=== PATIENT | female | born 1985 | race Caucasian/White ===

== ENCOUNTER 2020-08-01 02:48 | Outpatient (CLI) | payer BC, SELFPAY ==
[2020-08-01 18:16] LABS: SARS-CoV-2 RNA PCR Negative
== END 2020-08-01 02:49 | disposition home or self-care (01) ==
PROVIDERS: PCP Family Medicine; Visit Provider Student in an Organized Health Care Education/Training Program
DX: Z01.812 Encounter for preprocedural laboratory examination (principal); Z20.828 Contact with and (suspected) exposure to other viral communicable diseases
CPT/HCPCS: 87635; C9803; U0003

== ENCOUNTER 2020-08-01 09:38 | Outpatient (CLI) | payer BC, MEDICAID, SELFPAY ==
[2020-08-01 10:29] LABS: Hematocrit 40.4 % (37.0-47.0); Hemoglobin 13.7 g/dL (12.0-15.0); Mean Corpuscular HGB Conc 33.9 g/dl (32-36); Mean Corpuscular Hemoglobin 31.4 pg (26-34); Mean Corpuscular Volume 92.4 fl (80-100); Mean Platelet Volume 8.8 fl (7.4-10.4); Platelet Count Result 297 k/mm3 (150-375); Red Blood Count 4.37 M/mm3 (4.2-5.4); Red Cell Distribution Width 11.5 % (11.5-14.5); White Blood Count 10.6 K/mm3 (4.5-10.0)
== END 2020-08-01 09:39 | disposition home or self-care (01) ==
LOC: ANHSURGERY 09:43
PROVIDERS: PCP Family Medicine; Visit Provider Student in an Organized Health Care Education/Training Program
DX: Z30.2 Encounter for sterilization (principal)
CPT/HCPCS: 36415; 85027; 86850; 86900; 86901

== ENCOUNTER 2020-08-03 00:13 | Day surgery (SDC) | payer BC, SELFPAY ==
[2020-07-18 14:36] VITALS: BMI 24.1
--- NOTE | 2020-08-02 14:34 | P.PNAN_ITS ---
Anes - Initial Pre Proc Eval Procedure: Operation Date: 08/03/20 12:00 Proposed Procedures p Laparoscopic Bilateral Salpingectomy - González Mandujano MD Date/Time: 08/02/20 14:34 Surgeon: González Mandujano MD Pre Op Diagnosis: Desires Sterilization, Patient Data Age: 35 Gender: F Height: 1.65 m Weight: 65.77 kg Allergies Allergy/AdvReac Type Severity Reaction Status Date / Time No Known Allergies Allergy Verified 07/18/20 14:37 Home Medications Medication Instructions Recorded Confirmed Type bupropion HCl 300 mg PO DAILY 07/18/20 07/18/20 History drospirenone-ethinyl estradiol 1 tablet PO DAILY 07/18/20 07/18/20 History [Rocío] omeprazole 40 mg PO DAILY 07/18/20 07/18/20 History Patient hx anesthesia problems: none Family hx anesthesia problems: none [facility] Past Medical History Medical History (Updated 08/03/20 @ 08:07 by González Mandujano MD) Anxiety Depression GERD (gastroesophageal reflux disease) Surgical History Surgical History (Updated 08/02/20 @ 14:34 by Jus Sanchez DO) History of tonsillectomy Social History Social History Smoking packs per day: 0.5 Smoking cigarettes per day: 10.0 Years smoked: 20 Smoking pack-years: 10.00 Smoking status: Current every day smoker Tobacco type: cigarettes Alcohol intake: current Drinks per week: 2 Spiritual care concerns: No Anes - Eval Final PreProcedure Day of Procedure 08/02/20 14:34 Patient weight: normal Heart: regular rate and rhythm Lungs: clear to auscultation and normal air movement Airway: Mallampati scale class II Neurological: alert and oriented Last oral intake: >/= 8 hours ASA classification: II Emergent: no Anesthetic plan: proceed Anesthesia type and monitoring: general ETT and standard monitoring Informed Consent: The patient's anesthetic plan and its attendant risks and benefits were discussed with the patient/family/POA. Questions were solicited and answers provided to the satisfaction of the patient/family/POA.
[2020-08-03] VITALS (9 sets, daily range): BP systolic 87–122; BP diastolic 41–74; PULSE 76–102; RESP 11–20; TEMP 37.2–37.6; O2SAT 97–100
--- NOTE | 2020-08-03 08:06 | PM.IMHP ---
H&P: HPI History of Present Illness Date/Time: 08/03/20 08:06 Chief complaint: Desires Sterilization, Narrative: Amara Chery is a 35 year old female who presents for laparoscopic bilateral salpingectomy for elective sterilization. Patient has 4 living children and desires permanent sterilization. Patient was not interested in any other form of contraception. Review of Systems Cardiovascular: Cardiovascular: Denies chest pain, Denies leg edema, Denies palpitations, Denies dyspnea and Denies dyspnea on exertion Respiratory: Respiratory: Denies cough, Denies dyspnea and Denies dyspnea on exertion Gastrointestinal: Gastrointestinal: Denies abdominal pain, Denies constipation, Denies diarrhea, Denies nausea and Denies vomiting Genitourinary: Genitourinary: Denies hematuria, Denies urinary frequency, Denies dysuria, Denies pelvic pain, Denies urinary incontinence and Denies vaginal discharge Neurologic: Reports system reviewed and no additional complaints, except as documented Psychiatric: Psychiatric: Reports no additional psychiatric complaints Endocrine: Endocrine: Denies palpitations PMFSH Past Medical History Medical History (Updated 08/03/20 @ 08:07 by González Mandujano MD) Anxiety Depression GERD (gastroesophageal reflux disease) Surgical History Surgical History (Updated 08/02/20 @ 14:34 by Jus Sanchez DO) History of tonsillectomy Social History Social History Smoking packs per day: 0.5 Smoking cigarettes per day: 10.0 Years smoked: 20 Smoking pack-years: 10.00 Smoking status: Current every day smoker Tobacco type: cigarettes Alcohol intake: current Drinks per week: 2 Spiritual care concerns: No Meds Home Medications and Allergies Home Medications Medication Instructions Recorded Confirmed Type bupropion HCl 300 mg PO DAILY 07/18/20 07/18/20 History drospirenone-ethinyl estradiol 1 tablet PO DAILY 07/18/20 07/18/20 History [Rocío] omeprazole 40 mg PO DAILY 07/18/20 07/18/20 History Allergies Allergy/AdvReac Type Severity Reaction Status Date / Time No Known Allergies Allergy Verified 07/18/20 14:37 Exam Const: General: no acute distress Eyes: EOM: EOMs intact bilaterally Neck: Neck: supple Thyroid: thyroid normal Chest: Breast/axilla inspection: normal inspection of the breasts Breast/axilla palpation: normal palpation of the breasts, normal palpation of the axillae and no axillary lymphadenopathy Resp: Effort & Inspection: normal respiratory effort Auscultation: clear to auscultation bilaterally Cardio: Rate: regular rate Rhythm: regular rhythm GI: Inspection: non-distended GI Palp: Yes Soft to palpation, No Tenderness to palpation present (GI) and No Guarding due to palpation present (GI) Auscultation: normal bowel sounds : General: No bladder normal to palpation External Female Exam: normal external appearance Speculum Exam - Vagina: normal vaginal discharge and No vaginal bleeding Speculum Exam - Cervix: nontender Bimanual exam- vagina & uterus: No bladder normal to palpation and No Cervical tenderness present OB/external & speculum: No vaginal bleeding Skin: General skin exam: normal color and no rashes or lesions noted Neuro: Cognition (Neuro): normal cognition Speech: normal speech Extrem: General: normal to inspection and no edema Psych: Mental Status: mental status grossly normal Affect: normal affect Assessment and Plan Assessment and plan (1) Encounter for sterilization: Code(s): Z30.2 - Encounter for sterilization Status: Acute Assessment and Plan: 35 yo who requests permanent sterilization risks, benefits, and alternatives to permanent sterilization were discussed with patient. pt declined alternative forms of contraceptions will proceed with laparoscopic bilateral salpingectomy for permanent sterilization
[2020-08-03] MEDS: ACETAMINOPHEN 500 MG TABLET 1000 MG PO (10:56)
[2020-08-03] MEDS: KETOROLAC 15 MG/ML VIAL (*BKC) IV PUSH (10:58)
[2020-08-03] MEDS: LACTATED RINGERS 1,000 ML 30 ML IV CONT ×2 (11:04→12:25)
--- NOTE | 2020-08-03 11:35 | WPDHPUPDATE1 ---
History and Physical Update Update Date/Time: 08/03/20 11:35 History and Physical has been reviewed, including an updated exam of the patient. There are NO changes in the patient's condition. Risks, benefits, and alternatives have been discussed and questions answered. Patient agrees to proceed with procedure.
[2020-08-03] MEDS: LIDO 1%/EPINEPHRINE 1:100,000 20 ML VIAL INFILTRATE (12:16)
--- NOTE | 2020-08-03 12:24 | PM.PROC ---
Procedure Note - Detailed Date of procedure: 08/03/20 Pre-op diagnosis: Desires Sterilization, Post-op diagnosis: same Procedure performed: laparoscopic bilateral salpingectomy Description of procedure: After the patient was appropriately consented she was taken to the operating room where she was transferred to the table in a dorsal supine position. General anesthesia was then induced with endotracheal intubation. The patient was transferred to a dorsal lithotomy position using adjustable Yellow fin stirrups. The patient was prepped and draped. A transurethral da silva catheter was placed. A sterile speculum was placed to better visualized the cervix. The anterior lip of the cervix was grasped with single-tooth tenaculum. An acorn uterine manipulator was placed. Gloves were changed and attention was turned to the abdomen. Lidocaine was injected subumbilically and a 1cm incision made here. A 5 mm optical trocar was then placed with direct camera visualization of the abdominal layers during placement. The trocar stylet was removed and the camera was used to verify intra-abdominal placement. CO2 insufflation was then connected and the abdomen was then insufflated with approximately 2-3L of CO2 establishing a pneumoperitoneum. The patient was placed in Trendelenburg position. We subsequently placed two laparoscopic 5mm trocars 10cm lateral to the umbilicus at a 30 degree caudal angle towards the ipsilateral ASIS. We evaluated the pelvis with no abnormal findings. The Left fallopian tube was then grasped at the fimbriae and divided from the ipsilateral ovary and uterus via the Ligasure device. Hemostasis was identified. The entire fallopian tube was removed from the abdomen through the 5mm laparoscopic port under direct visualization. The above procedure was repeated on the Right fallopian tube. Hemostasis was reidentified and we proceeded with closure. All port-site skin incisions were reapproximated with 4-0 Vicryl in a subcuticular fashion. Dermabond was placed.The acorn manipulator was removed from the cervix. The cervix was notet to be bleeding from the tenaculum site. Hemostasis was achieved with silver nitrate sticks. The patient tolerated the procedure well. There were no antibiotics given for antimicrobial prophylaxis. Sponge, needle and instrument counts were correct x 2 and the patient was taken to recovery in stable condition. Anesthesia: GETA Surgeon: González Mandujano MD Estimated blood loss (mL): 10 Drains: No Packing: No Pathology: yes (bilateral fallopian tubes) Complications: No immediate complications Condition: stable Disposition: PACU
[2020-08-03] MEDS: fentaNYL CITRATE INJ (*CRX) 100 MCG/2 ML VIAL 25 MCG IV PUSH ×4 (12:45→13:12)
[2020-08-03] MEDS: oxyCODONE HCL (*CRX) 5 MG TAB IR PO (13:53)
--- NOTE | 2020-08-03 14:44 | SUR.PHASEI ---
Patient is getting dressed and just waiting for her ride to arrive. Vitals stable.
== END 2020-08-03 15:14 | disposition home or self-care (01) ==
PROVIDERS: PCP Family Medicine; Visit Provider Student in an Organized Health Care Education/Training Program
PROC: (CPT 49320; principal; 2020-08-03 12:00)
DX: Z30.2 Encounter for sterilization (principal); N83.8 Other noninflammatory disorders of ovary, fallopian tube and broad ligament; K21.9 Gastro-esophageal reflux disease without esophagitis; F41.8 Other specified anxiety disorders; F17.210 Nicotine dependence, cigarettes, uncomplicated
CPT/HCPCS: 58661; 88302; A9270; J0330; J1100; J1885; J2250; J2405; J2704; J3010; J7030; J7120

== ENCOUNTER 2023-05-21 17:00 | Outpatient (CLI) | payer OTHER, SELFPAY ==
--- NOTE | ~2023-05-21 | CT_ITS ---
EXAMINATION: CT abdomen wo con DATE: 05/21/2023 17:41 INDICATION: Epigastric pain TECHNIQUE: Computed tomography (CT) of the abdomen including the pelvis was performed without intrave nous contrast. Automated exposure control and iterative reconstruction technique were employed. The d ose-length product was 280.32 mGy-cm. COMPARISON: None FINDINGS: Lung bases are clear. Heart size is normal. No pericardial or pleural effusion. Hepatomegaly with dif fuse hepatic steatosis. Gallbladder, spleen and left adrenal gland is normal. Left-sided retroperiton eal stranding along the posterior margin of the body and tail of the pancreas, abutting the tail of t he pancreas and extending caudally along the left anterior pararenal space. Bilateral nonobstructing nephrolithiasis with 2 mm stone in an upper pole calyx of the left kidney and a couple 1-2 mm stones at lower pole calyx of the left kidney. No stones seen along the course of ureters. No hydronephrosis or perinephric stranding to the left or right. Bowels including the appendix are normal. Bladder, ut erus and bilateral adnexa are unremarkable. Small amount of likely physiologic free fluid in the pelv is. No abscess or free intraperitoneal gas. Tiny fat-containing umbilical hernia. No pathologically e nlarged abdominal or pelvic lymphadenopathy. Mild lumbosacral spondylosis. IMPRESSION: 1. Retroperitoneal stranding the left upper quadrant abutting the body and tail the pancreas and left adrenal gland. This could be due to acute interstitial pancreatitis or potentially adrenal hemorrhag e although the attenuation appears relatively low and would favor the former. Correlate with lipase l evels. 2. Bilateral nonobstructing nephrolithiasis. 3. Hepatomegaly with diffuse hepatic steatosis. Reviewed, dictated and finalized at location A. IMPRESSION: 1. Retroperitoneal stranding the left upper quadrant abutting the body and tail the pancreas and left adrenal gland. This could be due to acute interstitial p ancreatitis or potentially adrenal hemorrhage although the attenuation appears relatively low and would favor the former. Correlate with lipase levels. 2. Bilateral nonobstructing nephrolithiasis. 3. Hepatomegaly with diffuse hepatic steatosis.
[2023-05-21 17:25] LABS: Basophils Absolute Auto 0.04 K/mm3 (0.00-0.10); Basophils Percent Auto 0.3 % (0.0-1.0); Eosinophils Absolute Auto 0.12 K/mm3 (0.02-0.50); Eosinophils Percent Auto 0.8 % (1.0-6.0); Hematocrit 37.5 % (35.0-49.0); Hemoglobin 13.5 g/dL (12.0-15.0); Immature Granulocyte Absolute 0.06 K/mm3 (0.00-0.00); Immature Granulocyte Percent A 0.4 % (0.0-0.0); Lymphocytes Absolute Auto 1.69 K/mm3 (1.10-4.50); Lymphocytes Percent Auto 11.8 % (18.0-42.0); Mean Corpuscular Hemoglobin 33.8 pg (27.0-31.0); Mean Platelet Volume 7.8 fl (9.2-11.8); Monocytes Absolute Auto 1.02 K/mm3 (0.10-0.90); Monocytes Percent Auto 7.1 % (2.0-11.0); Neutrophils Absolute Auto 11.4 K/mm3 (1.7-7.2); Neutrophils Percent Auto 79.6 % (50.0-70.0); Platelet Count Result 169 K/mm3 (150-420); Red Blood Count 3.99 M/mm3 (4.20-5.40); Red Cell Distribution Width 12.5 % (11.6-14.4); White Blood Count 14.3 K/mm3 (4.8-10.8)
[2023-05-21 17:37] LABS: Alanine Aminotransferase 25 U/L (14-59); Albumin Level 3.5 g/dL (3.4-5.0); Alkaline Phosphatase 75 U/L (46-116); Amylase 77 U/L (25-115); Anion Gap 3 mmol/L (8-16); Aspartate Amino Transferase 23 U/L (15-37); Bilirubin,Total 1.3 mg/dL (0.00-1.00); Blood Urea Nitrogen 10 mg/dL (7-18); Calcium 8.1 mg/dL (8.5-10.1); Carbon Dioxide 25 mmol/L (21-32); Chloride 96 mmol/L (98-108); Estimated Glomerular Filt Rate > 60; Glucose 142 mg/dL (70-99); Lipase 199 U/L (16-77); Osmolality Calculated 259 mOsm/kg (285-295); Potassium 2.7 mmol/L (3.5-5.1); Sodium 124 mmol/L (136-145); Total Protein 7.6 g/dL (6.4-8.2)
== END 2023-05-21 17:01 | disposition home or self-care (01) ==
LOC: CHSLAB 17:07
PROVIDERS: PCP Family Medicine; Visit Provider Nurse Practitioner Family
DX: R10.13 Epigastric pain (principal); R10.12 Left upper quadrant pain; N20.0 Calculus of kidney; R16.0 Hepatomegaly, not elsewhere classified; K76.0 Fatty (change of) liver, not elsewhere classified
CPT/HCPCS: 36415; 74150; 80053; 82150; 83690; 85025

== ENCOUNTER 2023-07-08 13:15 | Outpatient (CLI) | payer OTHER, SELFPAY ==
[2023-07-08 14:05] LABS: Alanine Aminotransferase 21 U/L (14-59); Albumin Level 2.5 g/dL (3.4-5.0); Alkaline Phosphatase 105 U/L (46-116); Anion Gap 9 mmol/L (8-16); Aspartate Amino Transferase 19 U/L (15-37); Bilirubin,Total 0.6 mg/dL (0.00-1.00); Blood Urea Nitrogen 8 mg/dL (7-18); Calcium 9.1 mg/dL (8.5-10.1); Carbon Dioxide 31 mmol/L (21-32); Chloride 98 mmol/L (98-108); Estimated Glomerular Filt Rate > 60; Glucose 107 mg/dL (70-99); Magnesium 1.7 mg/dL (1.8-2.4); Osmolality Calculated 284 mOsm/kg (285-295); Potassium 3.4 mmol/L (3.5-5.1); Sodium 138 mmol/L (136-145); Total Protein 6.4 g/dL (6.4-8.2)
[2023-07-08 14:13] LABS: Lipase 655 U/L (16-77)
== END 2023-07-08 13:16 | disposition home or self-care (01) ==
LOC: CHSLAB 13:22
PROVIDERS: PCP Family Medicine
DX: K85.90 Acute pancreatitis without necrosis or infection, unspecified (principal)
CPT/HCPCS: 36415; 80053; 83690; 83735

== ENCOUNTER 2023-12-15 04:35 | Emergency (ER) | payer MEDICAID, SELFPAY ==
[2023-12-15] VITALS (13 sets, daily range): BP systolic 129–147; BP diastolic 75–91; PULSE 95–116; RESP 20; TEMP 35.9; O2SAT 93–99
--- NOTE | ~2023-12-15 | CT_ITS ---
CT of the Abdomen and Pelvis: Indication: Abdominal pain Technique: 2.5 mm axial scans were obtained through the abdomen and pelvis following intravenous adm inistration of 100 cc of Omnipaque 350. Dose reduction technique was used on this scan by utilizing a utomated exposure control and iterative reconstruction technique. The dose-length product (DLP) was 2 32.14 mGy-cm. COMPARISON: 05/21/2023 Findings: Scans through the lung bases are unremarkable. The liver, spleen, gallbladder, adrenals and kidneys are within normal limits. There is mild peripanc reatic inflammatory change present at the pancreatic head, with small amount of fluid extending throu gh the retroperitoneum. No pseudocyst or necrotic change of the pancreas evident. No evidence of aort ic aneurysm. No lymphadenopathy. No bowel obstruction or bowel wall thickening. There is no evidence to suggest acute appendicitis. Images through the pelvis were performed. Urinary bladder unremarkable. No pelvic mass seen. No pelvi c ascites. Impression: Acute pancreatitis, as detailed above. Reviewed, dictated and finalized at location . RAL SURVEYING TECHNICIAN Impression: Acute pancreatitis, as detailed above.
--- NOTE | ~2023-12-15 | XR_ITS ---
Portable chest x-ray Comparison: None Clinical History: Pain Findings: Lungs are clear, without focal consolidation or pleural effusion. Cardiomediastinal silho uette is unremarkable. Bones and soft tissues are unremarkable. Impression: Normal chest. Reviewed, dictated and finalized at location . ULAR OPERATOR Impression: Normal chest.
--- NOTE | 2023-12-15 04:49 | ECG_ITS ---
Measurements Intervals [place] Rate: 80 P: 69 [place]: 142 QRS: 48 QRSD: 89 T: 74 QT: 384 QTc: 443 Interpretive Statements SINUS RHYTHM BASELINE ARTIFACT RSR' V1 AND V2, PROBABLE NORMAL VARIANT NO PREVIOUS ECG AVAILABLE FOR COMPARISON Electronically Signed On 12-15-2023 18:17:48 REGULATORY CONSULTANT by Peter Menard M.D.
--- NOTE | 2023-12-15 04:51 | ED.GENADULT ---
HPI - General Adult General Chief complaint: Abdominal Pain Stated complaint: abdominal pain Time Seen by Provider: 12/15/23 04:42 History of Present Illness HPI narrative: This is a 38-year-old female with history of alcoholic pancreatitis presenting with abdominal pain. Patient says the pain started yesterday morning when she woke. It is a stabbing pain in the epigastric area that radiates to her back. Eight out 10 intensity and constant. Her last bout of pancreatitis was approximately 2 months ago. She says is due to alcohol. Patient's last drink was 2 days ago. Patient says she still drinks a pt of alcohol twice a week. Patient has had nausea vomiting. Denies fevers chills chest pain difficulty breathing or urinary symptoms. Last period was 2 weeks ago. Related Data Home Medications Medication Instructions Recorded Confirmed bupropion HCl 300 mg 24 hr tablet, 300 mg PO DAILY 07/18/20 12/15/23 extended release omeprazole 40 mg capsule,delayed 40 mg PO DAILY 07/18/20 12/15/23 release clonazepam 0.5 mg tablet 0.5 mg PO QHS PRN Anxiety 12/04/21 12/15/23 fluoxetine 20 mg capsule 20 mg PO DAILY 12/04/21 12/15/23 magnesium oxide 400 mg (241.3 mg 400 mg PO HS 12/15/23 12/15/23 magnesium) tablet Allergies Allergy/AdvReac Type Severity Reaction Status Date / Time No Known Allergies Allergy Verified 12/15/23 04:40 [facility] Past Medical History Medical History Anxiety Depression GERD (gastroesophageal reflux disease) Surgical History Surgical History History of tonsillectomy Social History Social History Smoking packs per day: 0.5 Smoking cigarettes per day: 10.0 Years smoked: 20 Smoking pack-years: 10.00 Smoking status: Current every day smoker Tobacco type: cigarettes Alcohol intake: current Drinks per week: 2 Spiritual care concerns: No Exam Narrative: APPEARANCE: Patient appears uncomfortable Head: atraumatic. EYES: EOMI, NOSE: Atraumatic NECK: Trachea midline RESPIRATORY: tachypneic, clear lung sounds CARDIOVASCULAR: tachycardic, no peripheral edema ABDOMINAL: tenderness palpation the epigastric area with voluntary guarding. The rest the abdomen is soft nontender. MUSCULOSKELETAl: No obvious deformities NEURO: Alert. Moving 4/4 extremities SKIN:: Warm, dry. Normal color PSYCHIATRIC: Normal affect Course Vital Signs Vital signs: Vital Signs Temperature 96.6 F L 12/15/23 04:39 Pulse Rate 116 H 12/15/23 04:39 Respiratory Rate 20 12/15/23 04:39 Blood Pressure 147/75 H 12/15/23 04:39 Pulse Oximetry 97 12/15/23 04:39 Oxygen Delivery Room Air 12/15/23 04:39 Temperature 96.6 F L 12/15/23 04:39 Pulse Rate 95 12/15/23 06:28 Respiratory Rate 20 12/15/23 04:39 Blood Pressure 139/91 H 12/15/23 06:01 Pulse Oximetry 94 12/15/23 06:15 Oxygen Delivery Room Air 12/15/23 04:39 Medical Decision Making [facility] Narrative Medical decision making narrative: -Course:38-year-old female presenting with abdominal pain. Lipase was normal, but CT showed evidence of pancreatitis. Known etiology of alcohol use. Patient given pain control with some improvement of her symptoms. Original plan was to admit the patient for IV fluids and pain medication. However the patient has missed this significant amount of work lately and does not want to be admitted to hospital. We will attempt a trial of outpatient management with antiemetics and pain control. Before discharge the patient was tolerating p.o. and had stable vital signs. Patient was encouraged to return if she could not control her pain/nausea. high likelihood of bouncing back needing admission. -DDX includes but is not limited to: Pancreatitis, gastritis gallbladder disease -Co-morbidities complicating care: history of alcoh
[2023-12-15 04:52] LABS: Basophils Absolute Auto 0.04 K/mm3 (0.00-0.10); Basophils Percent Auto 0.4 % (0.0-1.0); Eosinophils Absolute Auto 0.09 K/mm3 (0.02-0.50); Hematocrit 36.1 % (35.0-49.0); Hemoglobin 13.2 g/dL (12.0-15.0); Immature Granulocyte Absolute 0.04 K/mm3 (0.00-0.00); Immature Granulocyte Percent A 0.4 % (0.0-0.0); Lymphocytes Absolute Auto 1.53 K/mm3 (1.10-4.50); Lymphocytes Percent Auto 16.4 % (18.0-42.0); Mean Corpuscular HGB Conc 36.6 g/dL (32.0-36.0); Mean Corpuscular Hemoglobin 32.4 pg (27.0-31.0); Mean Corpuscular Volume 88.5 fL (78.0-102.0); Monocytes Absolute Auto 0.88 K/mm3 (0.10-0.90); Monocytes Percent Auto 9.4 % (2.0-11.0); Neutrophils Absolute Auto 6.8 K/mm3 (1.7-7.2); Neutrophils Percent Auto 72.4 % (50.0-70.0); Platelet Count Result 178 K/mm3 (150-420); Red Blood Count 4.08 M/mm3 (4.20-5.40); Red Cell Distribution Width 11.7 % (11.6-14.4); White Blood Count 9.3 K/mm3 (4.8-10.8)
[2023-12-15 05:01] LABS: Glucose Point of Care 105 mg/dl (65-105)
[2023-12-15 05:08] LABS: Alanine Aminotransferase 21 U/L (14-59); Albumin Level 3.4 g/dL (3.4-5.0); Alkaline Phosphatase 69 U/L (46-116); Anion Gap 20 mmol/L (8-16); Aspartate Amino Transferase 22 U/L (15-37); Bilirubin,Total 0.9 mg/dL (0.00-1.00); Blood Urea Nitrogen 12 mg/dL (7-18); Calcium 8.2 mg/dL (8.5-10.1); Carbon Dioxide 18 mmol/L (21-32); Chloride 95 mmol/L (98-108); Estimated CRCL calculation 64 ml/min; Estimated Glomerular Filt Rate > 60; Ethanol < 3 mg/dL (0-6); Glucose 132 mg/dL (70-99); Lipase 95 U/L (16-77); Osmolality Calculated 277 mOsm/kg (285-295); Potassium 3.9 mmol/L (3.5-5.1); Sodium 133 mmol/L (136-145); Total Protein 7.3 g/dL (6.4-8.2)
[2023-12-15] MEDS: HYDROmorphone HCL INJ (*CRX) 2 MG/ML VIAL 1 MG IV PUSH ×3 (05:09→06:23)
[2023-12-15 05:10] LABS: Lactic Acid Reflex 0.6 mmol/L (0.4-2.0)
[2023-12-15] MEDS: FAMOTIDINE 20 MG/2 ML VIAL IV PUSH (05:10)
[2023-12-15] MEDS: ONDANSETRON INJ 4 MG/2 ML VIAL IV PUSH (05:10)
[2023-12-15] MEDS: SODIUM CHLORIDE 0.9% IV 2,000 ML 999 ML IV CONT (05:11)
[2023-12-15 05:25] LABS: Bilirubin Urine Negative (Negative); Blood Urine Trace-Intact (Negative); Color Urine Yellow (Yellow); Glucose Urine UA Negative (Negative); Ketones Urine Negative (Negative); Leukocyte Esterase Ur Trace LEU/UL (Negative); Nitrate Urine Negative (Negative); Protein Urine Negative (Negative); Specific Grav Ur >= 1.030 (1.010-1.020); Urobilinogen Urine 0.2 mg/dL (0.2-1.0)
[2023-12-15 05:31] LABS: Amphetamine Screen Urine Negative (Negative); Barbiturate Screen Urine Negative (Negative); Benzodiazepines Screen Urine Negative (Negative); Cannabinoid Screen Urine Positive (Negative); Cocaine Screen Urine Negative (Negative); Methadone Screen Urine Negative (Negative); Opiate Screen Urine Negative (Negative); Phencyclidine Screen Urine Negative (Negative)
[2023-12-15 05:40] LABS: Add Urine Microscopic? YES; Appearance Urine Cloudy (Clear); RBC Urine 0-2 /hpf (0-2); Squamous Epithelial Cell Urine Many /hpf (Few); WBC Urine None seen /hpf (0-3)
[2023-12-15 05:41] LABS: Bacteria Urine 1+ /hpf; Mucus Urine Few /lpf
[2023-12-15] MEDS: KETOROLAC 15 MG/ML VIAL (*BKC) IV PUSH (05:55)
[2023-12-15] MEDS: ACETAMINOPHEN 500 MG TABLET 1000 MG PO (05:56)
== END 2023-12-15 07:17 | disposition home or self-care (01) ==
PROVIDERS: Emergency Provider Emergency Medicine
DX: K85.90 Acute pancreatitis without necrosis or infection, unspecified (principal); F17.210 Nicotine dependence, cigarettes, uncomplicated; Z79.899 Other long term (current) drug therapy
CPT/HCPCS: 36415; 71045; 74177; 80053; 80307; 81001; 82948; 83605; 83690; 85025; 93005; 96361; 96374; 96375; 96376; 99284; J1170; J1885; J2405; J7030; Q9967

== ENCOUNTER 2024-02-05 11:47 | Emergency (ER) | payer SELFPAY ==
[2024-02-05] VITALS (17 sets, daily range): BP systolic 124–144; BP diastolic 74–95; PULSE 67–120; RESP 16–26; TEMP 36.4–37.1; O2SAT 94–99
--- NOTE | ~2024-02-05 | CT_ITS ---
EXAMINATION: CT abdomen pelvis w con DATE: 02/05/2024 13:42 INDICATION: Abdominal pain. TECHNIQUE: Computed tomography (CT) of the abdomen and pelvis was performed with 100 mL Omnipaque 350 intravenous contrast. Automated exposure control and iterative reconstruction technique were employe d. The dose-length product was 255.81 mGy-cm. COMPARISON: CT abdomen and pelvis 12/15/2023 FINDINGS: The visualized portions of the lung bases are clear without pneumonia or pleural effusion. The heart size is normal. No pericardial effusion. There is diffuse hepatic steatosis. The spleen, ga llbladder, pancreas, adrenal glands, and kidneys are normal. There are no dilated loops of bowel. The appendix is normal. There are no pathologically enlarged lymph nodes. There is no free intraperitone al fluid. There is moderate lower lumbar spondylosis. IMPRESSION: 1. Diffuse hepatic steatosis. Reviewed, dictated and finalized at location A.
--- NOTE | 2024-02-05 11:52 | ECG_ITS ---
SEE SCANNED COPY FOR CONFIRMED REPORT MTDD
[2024-02-05] MEDS: MORPHINE SULFATE (*CRX) 4 MG/ML INJ IV PUSH (12:03)
[2024-02-05] MEDS: ONDANSETRON INJ 4 MG/2 ML VIAL IV PUSH (12:03)
[2024-02-05] MEDS: SODIUM CHLORIDE 0.9% IV 1,000 ML 999 ML IV CONT (12:03)
[2024-02-05 12:21] LABS: INR 1.1; Partial Thromboplastin Time 24.6 Sec (23.9-30.70); Prothrombin Time 12.4 Seconds (9.50-12.1)
[2024-02-05 12:24] LABS: Alanine Aminotransferase 29 U/L (14-59); Albumin Level 3.6 g/dL (3.4-5.0); Alkaline Phosphatase 62 U/L (46-116); Anion Gap 16 mmol/L (4-12); Bilirubin Direct 0.1 mg/dL (0-0.2); Bilirubin,Total 0.7 mg/dL (0.00-1.00); Blood Urea Nitrogen 16 mg/dL (7-18); Calcium 7.9 mg/dL (8.5-10.1); Carbon Dioxide 22 mmol/L (21-32); Chloride 97 mmol/L (98-108); Estimated CRCL calculation 56 ml/min; Estimated Glomerular Filt Rate 56; Glucose 111 mg/dL (70-99); Lipase 71 U/L (16-77); Osmolality Calculated 282 mOsm/kg (285-295); Potassium 3.7 mmol/L (3.5-5.1); Sodium 135 mmol/L (136-145)
[2024-02-05 12:27] LABS: Lactic Acid Reflex 4.2 mmol/L (0.4-2.0)
[2024-02-05 12:41] LABS: Aspartate Amino Transferase 50 U/L (15-37)
[2024-02-05 12:44] LABS: SARS-CoV-2 RNA PCR Negative (Negative)
[2024-02-05 12:45] LABS: Influenza A QL RT-PCR Negative (Negative); Influenza B QL RT-PCR Negative (Negative); RSV RNA, RT-PCR Negative (Negative)
[2024-02-05 12:57] LABS: Appearance Urine Clear (Clear); Bilirubin Urine Negative (Negative); Blood Urine Negative (Negative); Color Urine Yellow (Yellow); Glucose Urine UA Negative (Negative); Ketones Urine 1+ (Negative); Leukocyte Esterase Ur Negative LEU/UL (Negative); Nitrate Urine Negative (Negative); Protein Urine Negative (Negative); Urobilinogen Urine 0.2 mg/dL (0.2-1.0); pH Urine 6.5 (5.0-8.0)
[2024-02-05 13:01] LABS: Add Urine Microscopic? YES; Bacteria Urine Trace /hpf; RBC Urine None seen /hpf (0-2); Squamous Epithelial Cell Urine Few /hpf (Few); WBC Urine None seen /hpf (0-3)
[2024-02-05 13:05] LABS: Pregnancy On Board Control Positive; Urine Pregnancy Test Negative
[2024-02-05] MEDS: HYDROmorphone HCL INJ (*CRX) 2 MG/ML VIAL 0.5 MG IV PUSH (13:13)
[2024-02-05 13:28] LABS: Basophils Absolute Auto 0.08 K/mm3 (0.00-0.10); Basophils Percent Auto 0.6 % (0.0-1.0); Eosinophils Absolute Auto 0.02 K/mm3 (0.02-0.50); Eosinophils Percent Auto 0.2 % (1.0-6.0); Hemoglobin 14.1 g/dL (12.0-15.0); Immature Granulocyte Absolute 0.07 K/mm3 (0.00-0.00); Immature Granulocyte Percent A 0.5 % (0.0-0.0); Lymphocytes Absolute Auto 2.39 K/mm3 (1.10-4.50); Mean Corpuscular HGB Conc 35.3 g/dL (32-36); Mean Corpuscular Hemoglobin 32.1 pg (27.0-31.0); Mean Corpuscular Volume 91.1 fL (78.0-102.0); Mean Platelet Volume 8.3 fl (9.2-11.8); Monocytes Percent Auto 8.3 % (2.0-11.0); Neutrophils Absolute Auto 9.62 K/mm3 (1.70-7.20); Neutrophils Percent Auto 72.4 % (50.0-70.0); Platelet Count Result 258 K/mm3 (150-420); Red Blood Count 4.39 M/mm3 (4.20-5.40); Red Cell Distribution Width 11.9 % (11.6-14.4); White Blood Count 13.3 K/mm3 (4.8-10.8)
--- NOTE | 2024-02-05 14:15 | ED.ABDPAIN ---
HPI - Abdominal Pain General Chief Complaint: Abdominal Pain Stated Complaint: abdominal pain; diarrhea; nausea Time Seen by Provider: 02/05/24 11:48 Source: patient Mode of arrival: ambulatory Limitations: no limitations History of Present Illness HPI narrative: this is a 38-year-old female with history of pancreatitis presents with left upper quadrant abdominal pain with no radiation of her pain no bruising in the abdominal area, there was some nausea with no vomiting no fever chills no chest pain no shortness of breath. Patient is known alcohol user and has had alcohol last night which has exacerbated her pain level. MD elicited complaint: abdominal pain Onset (ago): hour(s) Related Data Home Medications Medication Instructions Recorded Confirmed bupropion HCl 300 mg 24 hr tablet, 300 mg PO DAILY 07/18/20 02/05/24 extended release omeprazole 40 mg capsule,delayed 40 mg PO DAILY 07/18/20 02/05/24 release clonazepam 0.5 mg tablet 0.5 mg PO QHS PRN Anxiety 12/04/21 02/05/24 fluoxetine 20 mg capsule 20 mg PO DAILY 12/04/21 02/05/24 folic acid 1 mg tablet 1 mg PO DAILY 02/05/24 02/05/24 Allergies Allergy/AdvReac Type Severity Reaction Status Date / Time No Known Allergies Allergy Verified 02/05/24 11:52 Review of Systems Review of Systems: All systems reviewed & are unremarkable except as noted in HPI and below PMFSH Past Medical History Medical History Anxiety Depression GERD (gastroesophageal reflux disease) Surgical History Surgical History History of tonsillectomy Social History Social History Smoking packs per day: 0.5 Smoking cigarettes per day: 10.0 Years smoked: 20 Smoking pack-years: 10.00 Smoking status: Current every day smoker Tobacco type: cigarettes Alcohol intake: current Drinks per week: 2 Spiritual care concerns: No Exam Const: General: healthy appearing and no acute distress Nutritional Appearance: well nourished Limitations: no limitations HENMT: Head: normal to inspection Neck: Neck: normal visual inspection Chest: Chest palpation & inspection: normal inspection of the chest Resp: Effort & Inspection: normal respiratory effort Auscultation: clear to auscultation bilaterally Cardio: Rate: regular rate Rhythm: regular rhythm GI: GI Palp: Yes Soft to palpation and Yes Tenderness to palpation present (GI) Auscultation: normal bowel sounds Back/Spine/Pelvis: Back: no CVA tenderness Skin: General skin exam: normal color Rashes: no rashes Neuro: General: patient oriented x3 and moves all extremities Extrem: General: normal to inspection and no clubbing, cyanosis or edema Psych: Mental Status: mental status grossly normal Course Course Emergency Course: Patient complains of left upper quadrant abdominal pain did receive 4mg of morphine and 0.5mg IV Dilaudid L of normal saline and Zofran for pain patient pain level has improved although still complains of left upper abdominal pain. White count [id number], lipase is within normal range and CT scan performed shows no acute pancreatic abnormalities does have some hepatic steatosis. Vital Signs Vital signs: Vital Signs Temperature 36.4 C 02/05/24 11:48 Pulse Rate 120 H 02/05/24 11:48 Respiratory Rate 26 H 02/05/24 11:48 Blood Pressure 134/95 H 02/05/24 11:48 Pulse Oximetry 99 02/05/24 11:48 Oxygen Delivery Room Air 02/05/24 11:48 Temperature 36.8 C 02/05/24 13:16 Pulse Rate 74 02/05/24 13:16 Respiratory Rate 18 02/05/24 13:16 Blood Pressure 131/74 02/05/24 13:16 Pulse Oximetry 99 02/05/24 13:16 Oxygen Delivery Room Air 02/05/24 13:16 MDM - Abdominal Pain Lab Data 02/05/24 13:19 02/05/24 12:04 Labs: Lab Results 02/05/24 02/05/24 02/05/24 Range/Un
[2024-02-05 15:06] LABS: Reflex Lactic Acid Yes or No Add Lactic
--- NOTE | 2024-02-11 13:48 | PC.NURSE ---
02/11/24 PTS BLOOD CULTURES COMPLETED PT POSITIVE FOR KOCURIA RHIZOPHILA SHOWN TO DR SHERWOOD AND NO ORDERS RECEIVED PT TO FOLLOW UP WITH HER PRIMARY PHYSICIAN MESSAGE LEFT AT PT PHONE NUMBER TO CALL BACK FOR RESULTS AND TO SEE HER DOCTOR `
== END 2024-02-05 14:29 | disposition home or self-care (01) ==
PROVIDERS: Emergency Provider Emergency Medicine
DX: R10.12 Left upper quadrant pain (principal); F41.9 Anxiety disorder, unspecified; F32.A Depression, unspecified; K21.9 Gastro-esophageal reflux disease without esophagitis; F17.210 Nicotine dependence, cigarettes, uncomplicated; Z20.822 Contact with and (suspected) exposure to COVID-19
CPT/HCPCS: 36415; 74177; 80048; 80076; 81001; 81025; 83605; 83690; 85025; 85610; 85730; 87040; 87147; 87637; 93005; 96361; 96374; 96375; 99284; J1170; J2270; J2405; J7030; Q9967

== ENCOUNTER 2024-04-18 06:46 | Emergency (ER) | payer OTHER, SELFPAY ==
[2024-04-18] VITALS (7 sets, daily range): BP systolic 107–123; BP diastolic 48–79; PULSE 94–95; RESP 20; TEMP 36.7; O2SAT 96–99
--- NOTE | ~2024-04-18 | CT_ITS ---
EXAMINATION: CT abdomen pelvis w con DATE: 04/18/2024 09:44 INDICATION: Abdominal pain, nausea and vomiting. TECHNIQUE: Computed tomography (CT) of the abdomen and pelvis was performed with 100 mL Omnipaque-350 intravenous contrast. Automated exposure control and iterative reconstruction technique were employe d. The dose-length product was 312.86 mGy-cm. COMPARISON: 02/05/2024 FINDINGS: Mild atelectasis in the right middle lobe. Heart size is normal. No pericardial or pleural effusion. Liver, gallbladder, bilateral adrenal glands, spleen and kidneys are normal. There is stranding in sm all amount of nonloculated peripancreatic fluid in the left upper quadrant consistent with acute inte rstitial pancreatitis. Bowels including the appendix are normal. Bladder, uterus and bilateral adnexa are unremarkable. Tampon within the vaginal vault. Small amount of likely physiologic free fluid in the cul-de-sac. No pathologically enlarged abdominal or pelvic lymphadenopathy. Mild degenerative ske letal changes in the spine and at the bilateral sacroiliac joints. IMPRESSION: 1. Peripancreatic stranding consistent with radiographic uncomplicated acute interstitial pancreatiti s. Correlate with lipase levels. Reviewed, dictated and finalized at location A. IMPRESSION: 1. Peripancreatic stranding consistent with radiographic uncomplicated acute in terstitial pancreatitis. Correlate with lipase levels.
[2024-04-18 06:56] LABS: Glucose Point of Care 107 mg/dl (65-105)
--- NOTE | 2024-04-18 07:05 | ED.ABDPAIN ---
HPI - Abdominal Pain General Chief Complaint: Abdominal Pain Stated Complaint: Abdominal pain, Nausea, Vomiting Time Seen by Provider: 04/18/24 07:05 History of Present Illness HPI narrative: Patient is a 39 year old female with history of alcoholic pancreatitis here with abdominal pain, nausea and vomiting x 2 days. Patient notes the symptoms began 2 nights ago. Pain is located in her epigastrium and radiates around to her bilateral flanks. She notes the pain is severe and persistently worsening, not improved with home Tylenol. She has had 1 episode of associated vomiting, nonbloody. She last took Tylenol and Zofran around 2:00 a.m. this morning. She still continues to drink alcohol, drinks 3-4 days per week. Last drink was 2 days ago before symptoms began. She notes history of withdrawals, does not feel like she is currently withdrawing. Symptoms today feel very similar to prior episodes of pancreatitis. Patient follows with a GI out of [place], [place] for her pancreatitis. No sick contacts. No cough, congestion. She does note a subjective fever over the last 2 days. No urinary symptoms aside from the flank pain. Related Data Home Medications Medication Instructions Recorded Confirmed bupropion HCl 300 mg 24 hr tablet, 300 mg PO DAILY 07/18/20 02/05/24 extended release omeprazole 40 mg capsule,delayed 40 mg PO DAILY 07/18/20 02/05/24 release clonazepam 0.5 mg tablet 0.5 mg PO QHS PRN Anxiety 12/04/21 02/05/24 fluoxetine 20 mg capsule 20 mg PO DAILY 12/04/21 02/05/24 folic acid 1 mg tablet 1 mg PO DAILY 02/05/24 02/05/24 Allergies Allergy/AdvReac Type Severity Reaction Status Date / Time No Known Allergies Allergy Verified 02/05/24 11:52 Review of Systems Review of Systems: All systems reviewed & are unremarkable except as noted in HPI and below PMFSH Past Medical History Medical History Anxiety Depression GERD (gastroesophageal reflux disease) Surgical History Surgical History History of tonsillectomy Social History Social History Smoking packs per day: 0.5 Smoking cigarettes per day: 10.0 Years smoked: 20 Smoking pack-years: 10.00 Smoking status: Current every day smoker Tobacco type: cigarettes Alcohol intake: current Drinks per week: 2 Spiritual care concerns: No Exam Narrative: GENERAL: Well-appearing, well-nourished, and in no acute distress. HEAD: Normocephalic, atraumatic. EYES: PERRLA and EOMI. ENT: Nares clear. Mucous membranes moist. NECK: Supple. CHEST: Clear to auscultation. No respiratory distress. HEART: Regular rate and rhythm. Normal peripheral pulses. ABDOMEN: Soft, diffusely tender, worse in the epigastrium, no rebound or guarding. Bilateral CVA tenderness which is mild. Nondistended abdomen. EXTREMITIES: Normal range of motion. No edema. SKIN: Warm, dry, no rash. NEURO: No focal deficits. Alert and oriented x3. PSYCH: Normal mood and affect. Course Course Emergency Course: Chart review performed. Patient here with nausea, vomiting x2 days. Abdominal pain. Triage vitals grossly normal. Reportedly sees a GI in [place]. Last visit in our system was January 2024 for abdominal pain. Patient seen evaluated, nontoxic appearing. She appears to have multiple prior ED visits for abdominal pain related to her pancreatitis, this presentation sounds similar and patient notes this feels similar to her prior episodes of pancreatitis. Differentials include pancreatitis, likely due to alcohol use, alcoholic gastritis, UTI. Basic lab work, UA, test, COVID/Influenza/RSV swab ordered. Will do EKG to monitor QTc given zofran use at home and anticipation for multiple antiemetics needed here in the ED. Morphine, protonix, zofran, IVF ordered. Patient agreeable to workup and plan. Lab work
--- NOTE | 2024-04-18 07:17 | ECG_ITS ---
Test Date: 2024-04-18 07:59:57 Measurements Intervals [place] Rate: 95 P: 78 NE: 130 QRS: 23 QRSD: 90 T: 66 QT: 350 QTc: 440 Interpretive Statements SINUS RHYTHM NORMAL ELECTROCARDIOGRAM No previous ECG available for comparison Electronically Signed On 04-18-2024 08:55:40 CDT by Biju Weathers M.D.
[2024-04-18 07:26] LABS: Basophils Absolute Auto 0.03 K/mm3 (0.00-0.10); Basophils Percent Auto 0.2 % (0.0-1.0); Eosinophils Percent Auto 0.8 % (1.0-6.0); Hematocrit 36.6 % (35.0-49.0); Immature Granulocyte Absolute 0.09 K/mm3 (0.00-0.00); Immature Granulocyte Percent A 0.7 % (0.0-0.0); Lymphocytes Absolute Auto 1.02 K/mm3 (1.10-4.50); Mean Corpuscular HGB Conc 35.5 g/dL (32-36); Mean Corpuscular Volume 90.1 fL (78.0-102.0); Monocytes Absolute Auto 0.98 K/mm3 (0.10-0.90); Monocytes Percent Auto 7.7 % (2.0-11.0); Neutrophils Absolute Auto 10.57 K/mm3 (1.70-7.20); Neutrophils Percent Auto 82.6 % (50.0-70.0); Platelet Count Result 246 K/mm3 (150-420); Red Blood Count 4.06 M/mm3 (4.20-5.40); Red Cell Distribution Width 11.7 % (11.6-14.4); White Blood Count 12.8 K/mm3 (4.8-10.8)
[2024-04-18 07:33] LABS: INR 0.9; Partial Thromboplastin Time 28.5 Sec (23.9-30.70); Prothrombin Time 10.2 Seconds (9.50-12.1)
[2024-04-18 07:34] LABS: Alanine Aminotransferase 17 U/L (14-59); Albumin Level 3.4 g/dL (3.4-5.0); Alkaline Phosphatase 68 U/L (46-116); Anion Gap 11 mmol/L (4-12); Aspartate Amino Transferase 29 U/L (15-37); Bilirubin,Total 1.1 mg/dL (0.00-1.00); Blood Urea Nitrogen 9 mg/dL (7-18); Calcium 8.5 mg/dL (8.5-10.1); Carbon Dioxide 24 mmol/L (21-32); Chloride 96 mmol/L (98-108); Estimated CRCL calculation 81 ml/min; Estimated Glomerular Filt Rate > 60; Glucose 96 mg/dL (70-99); Lipase 214 U/L (16-77); Osmolality Calculated 270 mOsm/kg (285-295); Potassium 3.3 mmol/L (3.5-5.1); Sodium 131 mmol/L (136-145); Total Protein 7.7 g/dL (6.4-8.2)
[2024-04-18 07:38] LABS: Lactic Acid Reflex 0.7 mmol/L (0.4-2.0)
[2024-04-18] MEDS: LACTATED RINGERS 1,000 ML 999 ML IV CONT (07:42)
[2024-04-18] MEDS: ONDANSETRON INJ 4 MG/2 ML VIAL IV PUSH (07:45)
[2024-04-18] MEDS: PANTOPRAZOLE SODIUM IV 40 MG VIAL IV PUSH (07:45)
[2024-04-18] MEDS: MORPHINE SULFATE (*CRX) 4 MG/ML INJ IV PUSH (07:46)
[2024-04-18] MEDS: POTASSIUM BICARBONATE 25 MEQ TABEF 50 MEQ PO (08:28)
[2024-04-18 09:11] LABS: Appearance Urine Clear (Clear); Bilirubin Urine Negative (Negative); Blood Urine Trace-intact (Negative); Color Urine Yellow (Yellow); Glucose Urine UA Negative (Negative); Ketones Urine 3+ (Negative); Leukocyte Esterase Ur Negative LEU/UL (Negative); Nitrate Urine Negative (Negative); Protein Urine Negative (Negative); Urobilinogen Urine 0.2 mg/dL (0.2-1.0)
[2024-04-18] MEDS: METOCLOPRAMIDE HCL INJ 10 MG/2 ML VIAL IV PUSH (09:14)
[2024-04-18] MEDS: diphenhydrAMINE HCl INJ 50 MG/ML VIAL 25 MG IV PUSH (09:14)
[2024-04-18] MEDS: HYDROmorphone HCL INJ (*CRX) 2 MG/ML VIAL 1 MG IV PUSH (09:15)
[2024-04-18 09:16] LABS: SARS-CoV-2 RNA PCR Negative (Negative)
[2024-04-18 09:18] LABS: Influenza A QL RT-PCR Negative (Negative); Influenza B QL RT-PCR Negative (Negative); RSV RNA, RT-PCR Negative (Negative)
[2024-04-18 09:19] LABS: Add Urine Microscopic? YES; Mucus Urine Moderate /lpf; Pregnancy On Board Control Positive; RBC Urine None seen /hpf (0-2); Squamous Epithelial Cell Urine Few /hpf (Few); Urine Pregnancy Test Negative
== END 2024-04-18 10:35 | disposition home or self-care (01) ==
PROVIDERS: Emergency Provider Student in an Organized Health Care Education/Training Program
DX: K85.90 Acute pancreatitis without necrosis or infection, unspecified (principal); E87.6 Hypokalemia; F41.9 Anxiety disorder, unspecified; F32.A Depression, unspecified; F17.210 Nicotine dependence, cigarettes, uncomplicated; Z20.822 Contact with and (suspected) exposure to COVID-19
CPT/HCPCS: 36415; 74177; 80053; 81001; 81025; 82948; 83605; 83690; 85025; 85610; 85730; 87637; 93005; 96361; 96374; 96375; 99284; A9270; C9113; J1170; J1200; J2270; J2405; J2765; J7120; Q9967

== ENCOUNTER 2024-12-30 23:37 | Emergency (ER) | payer BC, OTHER, SELFPAY ==
--- NOTE | ~2024-12-30 | CT_ITS ---
EXAMINATION: CT abdomen pelvis w con DATE: 12/31/2024 00:32 INDICATION: Epigastric abdominal pain. TECHNIQUE: Computed tomography (CT) of the abdomen and pelvis was performed with 100 mL Omnipaque 350 intravenous contrast. Automated exposure control and iterative reconstruction technique were employe d. The dose-length product was 472.23 mGy-cm. COMPARISON: CT abdomen and pelvis 04/18/2024 FINDINGS: The visualized portions of the lung bases are clear without pneumonia or pleural effusion. The heart size is normal. No pericardial effusion. There is diffuse hepatic steatosis. The gallbladde r, spleen are normal. There is fat stranding around the head of the pancreas. The pancreatic duct is mildly dilated to 4 mm in the body of the pancreas. The adrenal glands are normal. There is cortical thinning of the kidneys. There are no dilated loops of bowel. The appendix is normal. There are no pa thologically enlarged lymph nodes. There is no free intraperitoneal fluid. There is a supraumbilical ventral hernia containing fat. There is moderate lower lumbar spondylosis. IMPRESSION: 1. Acute interstitial pancreatitis. 2. Diffuse hepatic steatosis. 3. Supraumbilical ventral hernia containing fat. Reviewed, dictated and finalized at location A. ATIONAL SPEECH LANGUAGE CLINICIAN
[2024-12-30 23:39] VITALS: BP 124/62; PULSE 85; RESP 18; TEMP 36; O2SAT 98
--- OUTSIDE RECORDS SUMMARY | 2024-12-30 23:39 | XMS_ITS | Patient Health Summary ---
Author Organization [facility] Address [address] [place] [address] Care Team Providers Care Icing Coater Name Role Phone Unavailable Primary Care Provider Unavailabl e Note from [facility] [employer] [facility],non-owned Affiliates and Associated Physician Practices is amultiple site organization consisting of ambulatory clinics and hospital sitesin [place], [place], [place] and [place]. This disclosure is being madepursuant to the Care Everywhere program and may not contain all information available regarding this patient. Last updated 18.[facility] [employer] Allergies No known active allergies Medications * Be aware that medications may not be up to date on this document. Alwaysverify current medications with the patient. * drospirenone-ethinyl estradiol (MIL) 3-0.03 MG tablet Take 1 tablet by mouth once daily * omeprazole (PRILOSEC) 40 MG capsule Take 40 mg by mouth daily before breakfast * buPROPion XL 24hr (WELLBUTRIN-XL) 300 MG tablet Take 300 mg by mouth every morning * Oseltamivir Phosphate (TAMIFLU PO) Take by mouth once daily Active Problems Problem Noted Date Diagnosed Date NAFLD (nonalcoholic fatty liver disease) 020 Hepatitis C antibody test positive 10/14/2019 DDD (degenerative disc disease), lumbar 08/01/20 15 SI (sacroiliac) joint dysfunction 08/01/2015 Tobacco abuse 11/03/2012 Restless legs syndrome (RLS) 07/18/2009 Social History Tobacco Use Types Packs/Day Years Used Date Smoking Tobacco: Every Day Cigarettes Smokeless Tobacco: Never Alcohol Use Standard Drinks/Week Comments Yes 2 (1 standard drink = 0.6 oz pur e alcohol) 2-3 times per week Sex and Gender Information Value Date Recorded Sex Assigned at Not on file Gender Identity Not on file Sexual Orientation Not on file Last Filed Vital Signs Vital Sign Reading Time Taken Comments Blood Pressure 116/82 12/14/2019 1:04 PM DISPLAY CARVER Pulse 99 12/14/2019 1:04 PM DISPLAY CARVER Temperature 36.7 C (98.1 F) 12/14/2019 1:04 PM DISPLAY CARVER Respiratory Rate 18 12/14/2019 1:04 PM DISPLAY CARVER Oxygen Saturation 99% 12/14/2019 1:04 PM DISPLAY CARVER Inhaled Oxygen Concentration - - Weight 73.2 kg (161 lb 6.4 oz) 12/14/2019 1:04 P M DISPLAY CARVER Height 165.1 cm (5' 5 ) 12/14/2019 1:04 PM DISPLAY CARVER Body Mass Index 26.86 12/14/2019 1:04 PM DISPLAY CARVER Procedures * MT LIVER ELASTOGRAPHY(Performed 12/14/2019) Performed for Hepatitis C antibody test positive * HCV RNA PCR QNT (EXTERNAL RESULT ENTRY)(Performed 10/21/2019) * CBC W DIFF (EXTERNAL RESULT ENTRY)(Performed 10/21/2019) * COMP MET PANEL (EXTERNAL RESULT ENTRY)(Performed 10/21/2019) Results * PROC FIBROSCAN (12/14/2019 1:18 PM DISPLAY CARVER) Narrative Eitan Cary MD - 12/14/2019 1:18 PM DISPLAY CARVER Eitan Cary MD 12/14/2019 10:10 PM Diagnosis: Hepatitis C RN verified patient not , no implanted devices and NPO for prior 3 hours. Vital signs taken, procedure explained and consent signed. Date of Exam: 12/14/2019 Liver Stiffness: (LSM, kPa) median: 3.1 IQR (interquartile range): 0.2 IQR/Median% (ideally < 30%): 6 CAP (controlled attenuation parameter): 276 Technical Difficulty: None Ordering Provider: Norma Ferreira CHIEF LIBRARIAN MUSIC DEPARTMENT Phone Fax Fibroscan interpretation: I have personally reviewed the Fibroscan report and associated tracings. The calculated Liver Stiffness Measurement (LSM, kPa) indicates that: The probability of advanced liver fibrosis is: low. The loss of ultrasound signal, (controlled attenuation parameter, CAP [dB/m]), indicates that the probability of hepatic steatosis is: moderate. Eitan Cary MD The following criteria are used to indicate the probability of advanced (stage 3-4) fibrosis: < 7.0 kPa: low 7.0-8.9 kPa: low to moderate 9.0-14.9 kPa: moderate 15-20 kPa: high > 20 kPa: very high Liver stiffness > 20 kPa is also associated with a high probability of complications of portal hypertension including varices and ascites. Liver stiffness > 50 kPa is associated with a high risk of variceal bleeding. These interpretations are based on the following published data: Kalpana PJ, Wilda M, Beatrice M, et al. Accuracy of FibroScan controlled attenuation parameter and liver stiffness measurement in assessing steatosis and fibrosis in patients with nonalcoholic fatty liver disease. Gastroenterology 2019;156:6631-1726. Alfredo MS, Allan R, Van Rita ML, et al. Vibration-controlled transient elastography to assess fibrosis and steatosis in patients with nonalcoholic fatty liver disease. Clin Gastroenterol Hepatol 2019;17:156-163. Note: 1. Fibroscan cannot reliably identify earlier stages of fibrosis (ie distinguish F0 from F1 and F2) and thus a histologic stage cannot be predicted from the Fibroscan reading. 2. Assessing the likelihood of advanced fibrosis in patients with indeterminate liver stiffness measurement (LSM) by Fibroscan (e.g., 8-15 kPa) can be improved by also calculating the FIB4 score (Dovyduke et al. Hepatology Communications 2019;3:0248-9665) or NAFLD Fibrosis score (Perkins et al. Clinical Gastroenterology and Hepatology 2019;17:6765-0166. from routine clinical data. 3. Liver stiffness can be increased by factors other than fibrosis including passive congestion, infiltrative processes, active alcoholism, biliary obstruction and marked inflammation. The interpretation of the Fibroscan result provided above may not have taken such clinical factors into account. Disease etiology also influences Fibroscan cutoff values for fibrosis stages and the following cutoffs have been proposed (Yadiel et al, Clin Gastro Hepatol 2015; 13:27-36): Cutoffs for Stage 3 and Stage 4 fibrosis respectively: Hepatitis B: >9 and >11.7 kPa Hepatitis C: >9.5 and >12.5 kPa HCV-HIV: >11 and >14 kPa Cholestatic liver diseases: >10 and >17.9 kPa NAFLD/GARCIA: >10 and >14 kPa CAP estimates of steatosis: normal <200 dB/m mild 200 to 250 dB/m moderate 250-290 dB/m substantial > 290 dB/m (Note that Fibroscan is not a quantitative measure of liver fat.) These criteria are estimates and may change as additional supporting data becomes available. [email or web address] Norma Ferreira [employer] OPERATIONS MANAGER-MANAGER CASINO PROCEDURE/NE NOR SURGICAL ORDERABLES * (ABNORMAL) CBC W DIFF (EXTERNAL RESULT ENTRY) (10/21/2019) Pathologist [facility] WBC (EXTERNAL RESULT) 10.9(A) 4.5 - 10.8 10^3/ul Hemoglobin (EXTERNAL RESULT) 13.0 12.0 - 16.0 g/dl Hematocrit (EXTERNAL RESULT) 37.9 36.0 - 47.0 % Platelets (EXTERNAL RESULT) 293 150 - 350 10^3/ul Neutrophil Absolute (EXTERNAL RESULT) Blood BLOOD SPECIMEN / Unknown 10/21/2019 Historical Provider LAB - HEMATOLOGY ORDERABLES * HCV RNA PCR QNT (EXTERNAL RESULT ENTRY) (10/21/2019) Pathologist [facility] HCV RNA Quantitative RT-PCR (EXTERNAL RESULT) Not Detected Blood BLOOD SPECIMEN / Unknown 10/21/2019 Historical Provider LAB - CHEMISTRY O RDERABLES * (ABNORMAL) COMP MET PANEL (EXTERNAL RESULT ENTRY) (10/21/2019) Pathologist [facility] Glucose (EXTERNAL) 104(A) 70 - 99 mg/dL Sodium (EXTERNAL RESULT) 136 136 - 145 mmol/L Potassium (EXTERNAL RESULT) 4.2 3.5 - 5.1 mmol/L Chloride (EXTERNAL RESULT) 99 98 - 107 mmol/L CO2 (EXTERNAL) 25.3 21.0 - 32.0 mmol/L Calcium (EXTERNAL RESULT) 9.4 8.4 - 10.5 mg/dL Anion Gap (EXTERNAL RESULT) 11.7 5.0 - 15.0 mmol/L BUN (EXTERNAL RESULT) 13 6 - 24 mg/dL Creatinine (EXTERNAL RESULT) 0.69 0.55 - 1.02 mg/dl Alkaline Phosphatase (EXTERNAL RESULT) 68 37 - 98 U/L ALT (EXTERNAL RESULT) 25 14 - 59 U/L AST (EXTERNAL RESULT) 20 15 - 37 U/L Protein Total (EXTERNAL RESULT) 7.7 6.4 - 8.2 gm/dL Albumin (EXTERNAL RESULT) 3.6 3.4 - 5.0 gm/dL Bilirubin Total (EXTERNAL RESULT) 0.3 0.2 - 1.0 mg/dL eGFR MDRD (EXTERNAL RESULT) >90 >59 mL/min/1.7 3m2 eGFR (EXTERNAL) Blood BLOOD SPECIMEN / Unknown 10/21/2019 Historical Provider LAB - CHEMISTRY O [place]
--- OUTSIDE RECORDS SUMMARY | 2024-12-30 23:39 | XMS_ITS | Clinical Summary ---
Author Organization [facility] Address [address] [place] [address] Care Team Providers Care Customs Import Specialist Name Role Phone Laurie Argueta MD Primary Care Provider [phone] Allergies No known active allergies Medications buPROPion XL 300 MG 24 hr tablet Take 1 tablet (300 mg total) by mouth daily. Active vitamin D2, ergocalciferol, 53253 UNITS capsule Take 1 capsule (50,000 Units total) by mouth daily. Active folic acid (FOLVITE) 1 MG tablet Take 1 tablet (1 mg total) by mouth daily. 3 Active FLUoxetine HCl 60 MG Tab Take 60 mg by mouth daily. Active cefdinir (OMNICEF) 300 MG Cap capsule Take 1 capsule (300 mg total) by mouth 2 (two) times daily. 4 Active clonazePAM (KLONOPIN) 0.5 MG tablet TAKE 1/2 TO 1 TABLET BY MOUTH 1 HOUR BEFORE BEDTIME NEEDED FOR SLEEP 4 Active predniSONE (DELTASONE) 20 MG tablet Take 1 tablet (20 mg total) by mouth daily. 4 Active QUEtiapine (SEROQUEL) 50 MG tablet TAKE 1 TABLET BY MOUTH EVERY NIGHT 1 HOUR BEFORE BEDTIME FOR SLEEP 4 Active HYDROcodone-katya taminophen (NORCO) 5-325 MG tabletIndicatio ns:Acute Pain < 3 Day Supply Take 1 tablet by mouth every 4 (four) hours as needed. Indications: Acute Pain < 3 Day Supply 5 tablet 4 Active naloxone (NARCAN) 4 MG/0.1ML nasal spray 1 spray by Nasal route as needed for Opioid reversal. may repeat every 2 to 3 minutes in alternating nostrils until medical assistance becomes available 1 each 4 08/15/20 25 Active Active Problems Problem Noted Date Diagnosed Date Hypokalemia 08/14/2024 Alcohol-induced pancreatitis (HHS/HCC) 4 Alcohol abuse counseling and surveillance of alc oholic 08/13/2024 Overview (08/13/2024): Discussed increased fatty liver and continued alcohol abuse might become life threatening. says she can go several days without drinking, but on other days drinks 1-2 pints of Vodka Acute pancreatitis (HHS/HCC) 09/05/2023 Social History Tobacco Use Types Packs/Day Years Used Date Smoking Tobacco: Every Day Cigarettes Smokeless Tobacco: Never Tobacco Cessation:Ready to Q uit: Not Asked; Counseling Given: Not Answered Alcohol Use Standard Drinks/Week Comments Not Currently 0 (1 standard drink = 0.6 oz pure alcohol) pt states she has not drank in a week [facility] [employer] Answer Date Recorded In the past 12 months has Giraffe Friend, gas, oil, or water [place] threatened to shut off services in your home? No 08/13/2024 Humiliation, Afraid, Rape, and Kick questionnair e Answer Date Recorded Within the last year, have y ou been afraid of your partner or ex-partner? No 08/13/2024 Within the last year, have y ou been humiliated or emotionally abused in other ways by your partner or ex-partner? No Within the last year, have y ou been kicked, hit, slapped, or otherwise physically hurt by your partner or ex-partner? No 08/13/2024 Within the last year, have y ou been raped or forced to have any kind of sexual activity by your partner or ex-partner? No 08/13/2024 Overall Financial Resource Strain (CARDIA) Answe r Date Recorded How hard is it for you to pa y for the very basics like food, housing, medical care, and heating? Patient declined 08/13/2024 Hunger Vital Sign Answer Date Recorded Within the past 12 months, y ou worried that your food would run out before you got the money to buy more. Patient declined Within the past 12 months, t he food you bought just didn't last and you didn't have money to get more. Patient declined PRAPARE - Transportation Answer Date Re corded In the past 12 months, has l ack of transportation kept you from medical appointments or from getting medications? No 07/27 In the past 12 months, has l ack of transportation kept you from meetings, work, or from getting things needed for daily living? No 08/13/2024 Housing Stability Vital Sign Answer Thomas e Recorded In the last 12 months, was t here a time when you were not able to pay the mortgage or rent on time? No 09/06/2023 In the last 12 months, how many places have you lived? 1 09/06/2023 In the last 12 months, was t here a time when you did not have a steady place to sleep or slept in a mcfp (including now)? No 09/06/2023 Housing Stability Vital Sign Answer Thomas e Recorded In the last 12 months, was t here a time when you were not able to pay the mortgage or rent on time? No 08/13/2024 In the past 12 months, how m any times have you moved where you were living? 0 08/13/2024 At any time in the past 12 m [facility], were you homeless or living in a mcfp (including now)? 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 Gender Identity Not on file Sexual Orientation Not on file Last Filed Vital Signs Vital Sign Reading Time Taken Comments Blood Pressure 106/63 08/15/2024 8:15 AM CDT Pulse 103 08/15/2024 8:15 AM CDT Temperature 36.3 C (97.3 F) 08/15/2024 8:15 AM CDT Respiratory Rate 16 08/15/2024 8:15 AM CDT Oxygen Saturation 97% 08/15/2024 8:15 AM CDT Inhaled Oxygen Concentration - - Weight 70.5 kg (155 lb 8 oz) 08/15/2024 4:24 AM CDT Height 165.1 cm (5' 5 ) 08/13/2024 6:15 AM CDT Body Mass Index 25.88 08/13/2024 6:15 AM CDT Plan of Treatment Health Maintenance Due Date Last Done Comments Cervical Cancer Screening Pap Smear (Age 30 to 64) Every 3 Years 1984 Annual Physical 1987 Pneumococcal Vaccine: Pediatrics (0 to 5 Years) and At-Risk Patients (6 to 64 Years) (1 of 2 - PCV) 1990 Hepatitis C 2002 DTaP, Tdap and Td Vaccines (1 - Tdap) 2003 Hepatitis B Vaccines (1 of 3 - 19+ 3-dose series) 2003 01/02/2009, 11/30/2008 Cervical Cancer Screening Pap with HPV Testing (Age 30 to 64) Every 5 Years 2014 Cervical Cancer Screening with HPV 2014 Mammogram Screening 2024 COVID-19 Vaccine ( season) 2024 07/26/2022, 12/01/2021, 04/03/2021, Additional history exists Influenza Adult (#1) 2024 HPV Vaccines Aged Out No longer eligi ble based on patient's age to complete this topic Meningococcal B Vaccine Aged Out No l onger eligible based on patient's age to complete this topic Meningococcal Vaccine Aged Out No judy tram eligible based on patient's age to complete this topic RSV Immunizations Under 20 Months Aged Out No longer eligible based on patient's age to complete this topic Insurance [employer] Advance Directives * Full Code (Latest Code Status on File) Date Activated Date Inactivated Comments 08/13/2024 8:06 AM 08/15/2024 1:59 PM * Full Code Date Activated Date Inactivated Comments 08/13/2024 6:30 AM 08/13/2024 8:06 AM * Full Code Date Activated Date Inactivated Comments 09/05/2023 5:13 PM 09/08/2023 3:16 PM Care Teams Customs Import Specialist Relationship Specialty Start Date End Date Laurie Argueta MD [address] [place] [id number] PCP - General FAMILY PRACTICE 06/14/19
--- OUTSIDE RECORDS SUMMARY | 2024-12-30 23:39 | XMS_ITS | Referral Summary ---
Author Organization [facility] Address [address] [place] [address] Care Team Providers Care Millroom Supervisor Name Role Phone Unavailable Primary Care Provider Unavailabl e Source Comments [facility],non-owned Affiliates and Associated Physician Practices is amultiple site organization consisting of ambulatory clinics and hospital sitesin [place], [place], [place] and [place]. This disclosure is being madepursuant to the Care Everywhere program and may not contain all information available regarding this patient. Last updated 18.[facility] [employer] [facility] Allergies No known active allergies Medications * Be aware that medications may not be up to date on this document. Alwaysverify current medications with the patient. Medication Sig Dispensed Refills Start Date End Date Status drospirenone-ethinyl estradiol (MIL) 3-0.03 MG tablet Take 1 tablet by mouth once daily Active omeprazole (PRILOSEC) 40 MG capsule Take 40 mg by mouth daily before breakfast Active buPROPion XL 24hr (WELLBUTRIN-XL) 300 MG tablet Take 300 mg by mouth every morning Active Oseltamivir Phosphate (TAMIFLU PO) Take by mouth once daily Active Active Problems Problem Noted Date Diagnosed Date NAFLD (nonalcoholic fatty liver disease) 020 Overview (12/14/2019): 12/14/19 Fibroscan CAP 276, LSM 3.1 kPa Hepatitis C antibody test positive 10/14/2019 DDD [...] Comments Blood Pressure 116/82 12/14/2019 1:04 PM LOG HAUL CHAIN FEEDER Pulse 99 12/14/2019 1:04 PM LOG HAUL CHAIN FEEDER Temperature 36.7 C (98.1 F) 12/14/2019 1:04 PM LOG HAUL CHAIN FEEDER Respiratory Rate 18 12/14/2019 1:04 PM LOG HAUL CHAIN FEEDER Oxygen Saturation 99% 12/14/2019 1:04 PM LOG HAUL CHAIN FEEDER Inhaled Oxygen Concentration - - Weight 73.2 kg (161 lb 6.4 oz) 12/14/2019 1:04 P M LOG HAUL CHAIN FEEDER Height 165.1 cm (5' 5 ) 12/14/2019 1:04 PM LOG HAUL CHAIN FEEDER Body Mass Index 26.86 12/14/2019 1:04 PM LOG HAUL CHAIN FEEDER Plan of Treatment Not on file Goals Goal Patient Goal Type Associated Problems Recent Progress Patient-Stated? Author Medication Management General On track( 020 1:15 PM LOG HAUL CHAIN FEEDER) Mary Dominguez, RN Note: Expected end date: ongoing Interventions: Take all medications as prescribed
--- OUTSIDE RECORDS SUMMARY | 2024-12-30 23:39 | XMS_ITS | Encounter Summary ---
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
--- OUTSIDE RECORDS SUMMARY | 2024-12-30 23:39 | XMS_ITS | Clinical Summary ---
Author Organization [facility] Address [address] [place] [address] Care Team Providers Care Eligibility Consultant Name Role Phone Unavailable Primary Care Provider Unavailabl e Source Comments [facility],non-owned Affiliates and Associated Physician Practices is amultiple site organization consisting of ambulatory clinics and hospital sitesin [place], [place], [place] and [place]. This disclosure is being madepursuant to the Care Everywhere program and may not contain all information available regarding this patient. Last updated 18.[facility] Allergies No known active allergies Medications * [...] abuse 11/03/2012 Restless legs syndrome (RLS) 07/18/2009 Family History Medical History Relation Name Comments Hepatitis Maternal Uncle Relation Name Status Comments Maternal Uncle Social History Tobacco Use Types Packs/Day Years [...] Comments Blood Pressure 116/82 12/14/2019 1:04 PM REGRINDER OPERATOR Pulse 99 12/14/2019 1:04 PM REGRINDER OPERATOR Temperature 36.7 C (98.1 F) 12/14/2019 1:04 PM REGRINDER OPERATOR Respiratory Rate 18 12/14/2019 1:04 PM REGRINDER OPERATOR Oxygen Saturation 99% 12/14/2019 1:04 PM REGRINDER OPERATOR Inhaled Oxygen Concentration - - Weight 73.2 kg (161 lb 6.4 oz) 12/14/2019 1:04 P M REGRINDER OPERATOR Height 165.1 cm (5' 5 ) 12/14/2019 1:04 PM REGRINDER OPERATOR Body Mass Index 26.86 12/14/2019 1:04 PM REGRINDER OPERATOR Plan of Treatment Health Maintenance Due Date Last Done Comments LIPID TESTING 1984 MAMMOGRAM 1984 PAP SMEAR 1984 HIV SCREENING 1999 HEPATITIS C SCREENING 04/06/2002 DTAP/TDAP/TD VACCINES (1 - Tdap) 2003 HEPATITIS B VACCINE (1 of 3 - 19+ 3-dose series) 2003 COVID-19 VACCINE (2023-2 5 season) 2024 INFLUENZA VACCINE (#1) 2024 DEPRESSION SCREENING 10/27/2024 ZOSTER VACCINE (1 of 2) 2034 HIB VACCINE Aged Out No longer eligi ble based on patient's age to complete this topic HPV VACCINE Aged Out No longer eligi ble based on patient's age to complete this topic MENINGOCOCCAL (Group B) VACCINE Aged Out No longer eligible based on patient's age to complete this topic MENINGOCOCCAL VACCINE Aged Out No judy tram eligible based on patient's age to complete this topic PNEUMOCOCCAL VACCINE Aged Out No long er eligible based on patient's age to complete this topic Goals Goal Patient Goal Type Associated Problems Recent Progress Patient-Stated? Author Medication Management General On track( 020 1:15 PM REGRINDER OPERATOR) Mary Dominguez, RN Note: Expected end date: ongoing Interventions: Take all medications as prescribed
--- NOTE | 2024-12-30 23:42 | ECG_ITS ---
Test Date: 2024-12-30 23:49:08 Measurements Intervals [place] Rate: 72 P: 45 [place]: 126 QRS: 31 QRSD: 91 T: 52 QT: 392 QTc: 431 Interpretive Statements SINUS RHYTHM Compared to ECG 04/18/2024 07:59:57 No significant changes Electronically Signed On 12-31-2024 16:14:03 UNIT RECEPTIONIST by Jessica Leslie M.D.
--- NOTE | 2024-12-30 23:44 | ED_ITS ---
HPI - Abdominal Pain General Chief Complaint: Abdominal Pain Stated Complaint: abdominal pain Time Seen by Provider: 12/30/24 23:42 Source: patient Mode of arrival: ambulatory Limitations: no limitations History of Present Illness HPI narrative: this is a 39-year-old female with a history of pancreatitis related to alcohol abuse has not had a drink an approximately 1 month but overnight had some alcohol and subsequently developed abdominal pain epigastric and radiating to the left upper quadrant with no flank pain no fever chills no chest pain no shortness of breath. No dysuria or hematuria, no diarrhea constipation but patient does have nausea and vomiting. MD elicited complaint: abdominal pain Onset (ago): hour(s) Pain Consistency: constant Severity: severe Pain scale (0-10): 8 Quality: aching Radiation: LUQ and epigastric Exacerbating factors: nothing Associated symptoms: nausea and vomiting Related Data Home Medications ?Medication ?Instructions ?Recorded ?Confirmed ?Last Taken ?Type bupropion HCl 300 mg 24 hr tablet, 300 mg PO DAILY 07/18/20 02/05/24 12/14/23 History extended release omeprazole 40 mg capsule,delayed 40 mg PO DAILY 07/18/20 02/05/24 12/14/23 History release clonazepam 0.5 mg tablet 0.5 mg PO QHS PRN Anxiety 12/04/21 02/05/24 12/14/23 History fluoxetine 20 mg capsule 20 mg PO DAILY 12/04/21 02/05/24 12/14/23 History folic acid 1 mg tablet 1 mg PO DAILY 02/05/24 02/05/24 Unknown History Allergies Allergy/AdvReac Type Severity Reaction Status Date / Time No Known Allergies Allergy Verified 02/05/24 11:52 Review of Systems 2 Review of Systems: All systems reviewed & are unremarkable except as noted in HPI and below PMFSH Past Medical History Medical History Depression Anxiety GERD (gastroesophageal reflux disease) Surgical History Surgical History History of tonsillectomy Social History Social History Smoking packs per day: 0.5 Smoking cigarettes per day: 10.0 Years smoked: 20 Smoking pack-years: 10.00 Smoking status: Current every day smoker Tobacco type: cigarettes Alcohol intake: current Drinks per week: 2 Spiritual care concerns: No Exam 2 Const: General: healthy appearing and no acute distress Nutritional Appearance: well nourished Orientation/consciousness: patient oriented x3 Limitations: no limitations Neck: Neck: normal visual inspection and no lymphadenopathy Chest: Chest palpation & inspection: normal inspection of the chest Resp: Effort & Inspection: normal respiratory effort Auscultation: clear to auscultation bilaterally Cardio: Rate: regular rate Rhythm: regular rhythm GI: GI Palp: Yes Soft to palpation and Yes Tenderness to palpation present (GI) Auscultation: normal bowel sounds : General: Yes bladder normal to palpation Skin: General skin exam: normal color Rashes: no rashes Wounds: no wounds Neuro: General: patient oriented x3 and moves all extremities Extrem: General: normal to inspection and no clubbing, cyanosis or edema Psych: Affect: Anxious affect present Course Course Emergency Course: Patient received IV fluids with normal saline 1L, 4mg IV morphine and Zofran 4mg IV. CT scan abdomen pelvis performed and reviewed Blood work performed including lipase and reviewed with patient Vital Signs Vital signs: Vital Signs Temperature 36.0 C L 12/30/24 23:39 Pulse Rate 85 12/30/24 23:39 Respiratory Rate 18 12/30/24 23:39 Blood Pressure 124/62 12/30/24 23:39 Pulse Oximetry 98 12/30/24 23:39 Oxygen Delivery Room Air 12/30/24 23:39 Temperature 36.0 C L 12/30/24 23:39 Pulse Rate 74 12/31/24 02:00 Respiratory Rate 18 12/31/24 02:00 Blood Pressure 132/76 12/31/24 02:00 Pulse Oximetry 99 12/31/24 02:00 Oxygen Delivery Room Air 12/31/24 02:00 MDM - Abdominal Pain Lab Data 12/30/24 23:51 12/30/24 23:51 Labs: Lab Results 12/30/24 12/30/24 Range/Units 23:51 23:58 WBC 8.8 (4.8-10.8) K/mm3 RBC 3.89 L (4.20-5.40) M/mm3 Hgb 11.9 L (12.0-15.0) g/dL Hct 34.9 L (35.0-49.0) % MCV 89.7 (78.0-102.0) fL MCH 30.6 (27.0-31.0) pg MCHC 34.1 (32-36) g/dL RDW 11.9 (11.6-14.4) % Plt Count 211 (150-420) K/mm3 MPV 8.2 L (9.2-11.8) fl Immature Gran % (Auto) 0.6 H (0.0-0.0) % Neut % (Auto) 63.7 (50.0-70.0) % Lymph % (Auto) 26.5 (18.0-42.0) % [place] % (Auto) 7.0 (2.0-11.0) % Eos % (Auto) 1.7 (1.0-6.0) % Baso % (Auto) 0.5 (0.0-1.0) % Lymph # (Auto) 2.32 (1.10-4.50) K/mm3 [place] # (Auto) 0.61 (0.10-0.90) K/mm3 Eos # (Auto) 0.15 (0.02-0.50) K/mm3 Baso # (Auto) 0.04 (0.00-0.10) K/mm3 Abs Immat Gran (auto) 0.05 H (0.00-0.00) K/mm3 Absolute Neuts (auto) 5.59 (1.70-7.20) K/mm3 Absolute Nucleated RBC 0.00 (0.00-0.00) K/mm3 Nucleated RBC % 0.0 (0-0.0) % PT 10.3 (9.50-12.1) Seconds INR 0.9 APTT 26.8 (23.9-30.70) Sec Sodium 135 L (136-145) mmol/L Potassium 3.6 (3.5-5.1) mmol/L Chloride 97 L (98-108) mmol/L Carbon Dioxide 23 (21-32) mmol/L Anion Gap 15 H (4-12) mmol/L BUN 18 (7-18) mg/dL Creatinine 0.95 (0.55-1.02) mg/dL Estim Creat Clear Calc 71 ml/min Estimated GFR > 60 (59 - ) Glucose 122 H (70-99) mg/dL Calculated Osmolality 282 L (285-295) mOsm/kg Lactic Acid 1.5 (0.4-2.0) mmol/L Calcium 8.6 (8.5-10.1) mg/dL Total Bilirubin 0.4 (0.00-1.00) mg/dL AST 45 H (15-37) U/L ALT 46 (14-59) U/L Alkaline Phosphatase 101 (46-116) U/L Troponin I < 4.0 (0.00-60.4) ng/L Total Protein 7.3 (6.4-8.2) g/dL Albumin 3.5 (3.4-5.0) g/dL Lipase 188 H (16-77) U/L Urine Color Light yellow (Yellow) Urine Appearance Clear (Clear) Urine pH 5.5 (5.0-8.0) Ur Specific [place] >= 1.030 H (1.010-1.020) Urine Protein Negative (Negative) Urine Glucose (UA) Negative (Negative) Urine Ketones Negative (Negative) Ur Blood (Man) Negative (Negative) Urine Nitrate Negative (Negative) Urine Bilirubin Negative (Negative) Urine Urobilinogen 0.2 (0.2-1.0) mg/dL Leukocyte Esterase Rfl Negative (Negative) ABDULKADIR/UL Urine Test Negative Imaging Data Radiologist's impression: ITS Impressions Abdomen/Pelvis CT 12/31/24 07:33 IMPRESSION: 1. Acute interstitial pancreatitis. 2. Diffuse hepatic steatosis. 3. Supraumbilical ventral hernia containing fat. Critical Care Time Critical Care Time Critical Care Time: No Discharge Plan Discharge Clinical Impression: Pancreatitis Qualifiers: Chronicity: acute Acute pancreatitis complication: unspecified Patient Disposition: Home, Self-Care Condition: Stable Instructions: Antibiotic Form, Pancreatitis (ED) Additional Instructions: advised to take medication as prescribed and to follow with primary care physician within next 3 to 4 days for further evaluation and treatment. Patient Language: Palestinian Prescriptions: New oxycodone-acetaminophen [Percocet] 5-325 mg tablet 1 tablet PO Q6H PRN (Reason: pain) Qty: 20 0RF ondansetron 4 mg tablet,disintegrating 4 mg PO Q6H PRN (Reason: nausea and vomiting) Qty: 14 0RF No Action folic acid 1 mg tablet 1 mg PO DAILY oxycodone-acetaminophen [Percocet] 5-325 mg tablet 1 tablet PO Q6H PRN (Reason: pain) Qty: 14 0RF ondansetron 4 mg tablet,disintegrating 4 mg PO Q6H PRN (Reason: nausea and vomiting) Qty: 14 0RF oxycodone 5 mg capsule 5 mg PO Q4H PRN (Reason: pain) Qty: 20 0RF ibuprofen 600 mg tablet 600 mg PO Q6H PRN (Reason: pain) Qty: 20 0RF ondansetron 4 mg tablet,disintegrating 4 mg PO Q8H PRN (Reason: nausea and vomiting) Qty: 14 0RF fluoxetine 20 mg capsule 20 mg PO DAILY clonazepam 0.5 mg tablet 0.5 mg PO QHS PRN (Reason: Anxiety) omeprazole 40 mg capsule,delayed release(DR/EC) 40 mg PO DAILY bupropion HCl 300 mg tablet extended release 24 hr 300 mg PO DAILY Follow-up/Referrals: UNKNOWN,DOCTOR [Primary Care Provider] - Time of Disposition: 01:57
[2024-12-30 23:56] LABS: Basophils Absolute Auto 0.04 K/mm3 (0.00-0.10); Basophils Percent Auto 0.5 % (0.0-1.0); Eosinophils Absolute Auto 0.15 K/mm3 (0.02-0.50); Eosinophils Percent Auto 1.7 % (1.0-6.0); Hematocrit 34.9 % (35.0-49.0); Hemoglobin 11.9 g/dL (12.0-15.0); Immature Granulocyte Absolute 0.05 K/mm3 (0.00-0.00); Immature Granulocyte Percent A 0.6 % (0.0-0.0); Lymphocytes Absolute Auto 2.32 K/mm3 (1.10-4.50); Lymphocytes Percent Auto 26.5 % (18.0-42.0); Mean Corpuscular HGB Conc 34.1 g/dL (32-36); Mean Corpuscular Hemoglobin 30.6 pg (27.0-31.0); Mean Corpuscular Volume 89.7 fL (78.0-102.0); Mean Platelet Volume 8.2 fl (9.2-11.8); Monocytes Absolute Auto 0.61 K/mm3 (0.10-0.90); Neutrophils Absolute Auto 5.59 K/mm3 (1.70-7.20); Neutrophils Percent Auto 63.7 % (50.0-70.0); Platelet Count Result 211 K/mm3 (150-420); Red Blood Count 3.89 M/mm3 (4.20-5.40); Red Cell Distribution Width 11.9 % (11.6-14.4); White Blood Count 8.8 K/mm3 (4.8-10.8)
[2024-12-30] MEDS: ONDANSETRON INJ 4 MG/2 ML VIAL IV PUSH (23:57)
[2024-12-30] MEDS: MORPHINE SULFATE (*CRX) 4 MG/ML INJ IV PUSH (23:57)
[2024-12-30] MEDS: SODIUM CHLORIDE 0.9% IV 1,000 ML 999 ML IV CONT (23:57)
[2024-12-30] MEDS: PANTOPRAZOLE SODIUM IV 40 MG VIAL IV PUSH (23:57)
[2024-12-31 00:02] LABS: Add Urine Microscopic? NO; Appearance Urine Clear (Clear); Bilirubin Urine Negative (Negative); Blood Urine Negative (Negative); Color Urine Light Yellow (Yellow); Glucose Urine UA Negative (Negative); Ketones Urine Negative (Negative); Leukocyte Esterase Ur Negative LEU/UL (Negative); Nitrate Urine Negative (Negative); Protein Urine Negative (Negative); Specific Grav Ur >= 1.030 (1.010-1.020); Urobilinogen Urine 0.2 mg/dL (0.2-1.0); pH Urine 5.5 (5.0-8.0)
[2024-12-31 00:04] LABS: Pregnancy On Board Control Positive; Urine Pregnancy Test Negative
[2024-12-31 00:07] LABS: INR 0.9; Partial Thromboplastin Time 26.8 Sec (23.9-30.70); Prothrombin Time 10.3 Seconds (9.50-12.1)
[2024-12-31 00:11] LABS: Alanine Aminotransferase 46 U/L (14-59); Albumin Level 3.5 g/dL (3.4-5.0); Alkaline Phosphatase 101 U/L (46-116); Anion Gap 15 mmol/L (4-12); Aspartate Amino Transferase 45 U/L (15-37); Bilirubin,Total 0.4 mg/dL (0.00-1.00); Blood Urea Nitrogen 18 mg/dL (7-18); Calcium 8.6 mg/dL (8.5-10.1); Carbon Dioxide 23 mmol/L (21-32); Chloride 97 mmol/L (98-108); Estimated CRCL calculation 71 ml/min; Estimated Glomerular Filt Rate > 60; Glucose 122 mg/dL (70-99); Lipase 188 U/L (16-77); Osmolality Calculated 282 mOsm/kg (285-295); Potassium 3.6 mmol/L (3.5-5.1); Sodium 135 mmol/L (136-145); Total Protein 7.3 g/dL (6.4-8.2)
[2024-12-31 00:14] LABS: Lactic Acid Reflex 1.5 mmol/L (0.4-2.0)
[2024-12-31 00:16] LABS: Troponin I < 4.0 ng/L (0.00-60.4)
[2024-12-31] MEDS: HYDROmorphone HCL INJ (*CRX) 2 MG/ML VIAL 1 MG IV PUSH (01:25)
[2024-12-31 02:00] VITALS: BP 132/76; PULSE 74; RESP 18; O2SAT 99
--- NOTE | 2025-01-01 13:33 | PC.NURSE ---
preliminary blood culture reports x2 reviewed. no growth to date
--- NOTE | 2025-01-06 12:59 | PC.NURSE ---
blood culture reviewed, no growth.
== END 2024-12-31 02:00 | disposition home or self-care (01) ==
PROVIDERS: Emergency Provider Emergency Medicine
DX: K85.90 Acute pancreatitis without necrosis or infection, unspecified (principal); F17.210 Nicotine dependence, cigarettes, uncomplicated
CPT/HCPCS: 36415; 74177; 80053; 81003; 81025; 83605; 83690; 84484; 85025; 85610; 85730; 87040; 93005; 96361; 96374; 96375; 99284; J1171; J2270; J2405; J2470; J7030; Q9967

== ENCOUNTER 2025-06-04 20:51 | Observation (INO) | payer OTHER, SELFPAY ==
--- NOTE | ~2025-06-04 | CT_ITS ---
EXAMINATION: CT abdomen pelvis w con DATE: 06/04/2025 22:07 INDICATION: Abdominal pain. Prior pancreatitis. TECHNIQUE: Computed tomography (CT) of the abdomen and pelvis was performed with 100 mL Omnipaque-350 intravenous contrast. Automated exposure control and iterative reconstruction technique were employe d. The dose-length product was 499.08 mGy-cm. COMPARISON: 12/31/2024 FINDINGS: Lung bases are clear. Heart size is normal. No pericardial or pleural effusion. Small sliding-type hi atal hernia. Diffuse hepatic steatosis with focal sparing along the gallbladder fossa and geographic regions at the periphery of the liver. Gallbladder, spleen,, bilateral adrenal glands and kidneys are normal. There is peripancreatic inflammatory stranding which spares the tail the pancreas consistent with acute interstitial pancreatitis. Bowels including the appendix are normal. Bladder, uterus and bilateral adnexa are unremarkable. No abscess or free intraperitoneal gas or fluid. No pathologically enlarged abdominal or pelvic lymphadenopathy. Mild lumbar and lower thoracic spondylosis. IMPRESSION: 1. Acute interstitial pancreatitis. 2. Prominent diffuse hepatic steatosis. Reviewed, dictated and finalized at location A.
--- NOTE | 2025-06-04 20:54 | ED.ABDPAIN ---
HPI - Abdominal Pain General Chief Complaint: Abdominal Pain Stated Complaint: Abd Issues Time Seen by Provider: 06/04/25 20:54 Source: patient Mode of arrival: ambulatory Limitations: no limitations History of Present Illness HPI narrative: Patient is a 40-year-old female with epigastric pain for the past 2 days. She has a history of alcohol stimulated pancreatitis. She does not drink at this time but does get recurrent pancreatitis on its own. The epigastric pain radiates to her back around the side of her left flank. Associated nausea and vomiting. MD elicited complaint: abdominal pain ( epigastric) and flank pain ( Left) Pertinent past history: other ( pancreatitis of alcoholism) Onset (ago): day(s) ( 2) Pain Consistency: constant Location: epigastric and L flank Severity: severe Pain scale (0-10): 9 Quality: stabbing and sharp Radiation: L flank Migration to: LUQ Exacerbating factors: movement Relieving factors: movement Context: confirms history of similar episodes Associated symptoms: nausea and vomiting Treatments prior to arrival: other ( none) Related Data Home Medications ?Medication ?Instructions ?Recorded ?Confirmed ?Last Taken ?Type bupropion HCl 300 mg 24 hr tablet, 300 mg PO DAILY 07/18/20 02/05/24 12/14/23 History extended release omeprazole 40 mg capsule,delayed 40 mg PO DAILY 07/18/20 02/05/24 12/14/23 History release clonazepam 0.5 mg tablet 0.5 mg PO QHS PRN Anxiety 12/04/21 02/05/24 12/14/23 History fluoxetine 20 mg capsule 20 mg PO DAILY 12/04/21 02/05/24 12/14/23 History folic acid 1 mg tablet 1 mg PO DAILY 02/05/24 02/05/24 Unknown History Allergies Allergy/AdvReac Type Severity Reaction Status Date / Time No Known Allergies Allergy Verified 06/04/25 22:15 Review of Systems Review of Systems: All systems reviewed & are unremarkable except as noted in HPI and below Constitutional: Constitutional: Reports no additional constitutional complaints Eyes: Eyes: Reports no additional eye complaints ENT: Reports system reviewed and no additional complaints, except as documented Cardiovascular: Cardiovascular: Reports no additional cardiovascular complaints Respiratory: Respiratory: Reports no additional respiratory complaints Gastrointestinal: Gastrointestinal: Reports no additional gastrointestinal complaints Genitourinary: Genitourinary: Reports no additional female genitourinary complaints Musculoskeletal: Musculoskeletal: Reports no additional musculoskeletal complaints Integumentary/Breasts: Skin/Breast: Reports system reviewed and no additional complaints, except as docu Neurologic: Reports system reviewed and no additional complaints, except as documented Psychiatric: Psychiatric: Reports no additional psychiatric complaints Endocrine: Endocrine: Reports no additional endocrine complaints Hematologic/Lymphatic: Hematologic/Lymphatic: Reports no additional hematologic/lymphatic complaints Allergic/Immunologic: Allergic/Immunologic: Reports no additional allergic/immunologic complaints [facility] Past Medical History Medical History Depression Anxiety GERD (gastroesophageal reflux disease) Surgical History Surgical History History of tonsillectomy Social History Social History Smoking packs per day: 0.5 Smoking cigarettes per day: 10.0 Years smoked: 20 Smoking pack-years: 10.00 Smoking status: Current every day smoker Tobacco type: cigarettes Alcohol intake: current Drinks per week: 2 Spiritual care concerns: No Exam Const: General: healthy appearing and ill appearing; No no acute distress Nutritional Appearance: well nourished Orientation/consciousness: patient oriented x3 Limitations: no limitations Other: patient is not intoxicated HENMT: Head: normal to inspection Ears: external ears normal Face/Nose/Sinus: Normal external nose present Eyes: Conjunctivae: conjunctivae normal Pupils: Equal, round and reactive pupils present EOM: EOMs intact bilaterally Neck: Neck: normal visual inspection Chest: Chest palpation & inspection: normal inspection of the chest Resp: Effort & Inspection: normal respiratory effort and not labored Auscultation: clear to auscultation bilaterally and no crackles Cardio: Rate: regular rate Rhythm: regular rhythm Heart sounds: no murmurs GI: Inspection: non-distended GI Palp: Yes Soft to palpation, Yes Tenderness to palpation present (GI) ( epigastric), Yes Guarding due to palpation present (GI), No Rigid due to palpation, No Hernia present, No Palpable mass present and Yes Rebound tenderness present Auscultation: Hypoactive bowel sounds present : General: Yes bladder normal to palpation Back/Spine/Pelvis: Back: no CVA tenderness Skin: General skin exam: normal color Rashes: no rashes Wounds: no wounds Neuro: General: patient oriented x3, moves all extremities and no meningeal signs Extrem: General: normal to inspection, no clubbing, cyanosis or edema and no pedal edema Psych: Mental Status: mental status grossly normal Affect: normal affect Attitude: cooperative Course Vital Signs Vital signs: Vital Signs Temperature 36.6 C 06/04/25 20:55 Pulse Rate 114 H 06/04/25 20:55 Respiratory Rate 21 H 06/04/25 20:55 Blood Pressure 160/114 H 06/04/25 20:55 Pulse Oximetry 97 06/04/25 20:55 Oxygen Delivery Room Air 06/04/25 20:55 Temperature 36.6 C 06/04/25 20:55 Pulse Rate 114 H 06/04/25 20:55 Respiratory Rate 21 H 06/04/25 20:55 Blood Pressure 160/114 H 06/04/25 20:55 Pulse Oximetry 97 06/04/25 20:55 Oxygen Delivery Room Air 06/04/25 20:55 MDM - Abdominal Pain MDM Narrative Medical decision making narrative: patient is a 40-year-old female with epigastric pain with history of pancreatitis. We will do a GI workup at this time. Pain control. Nausea control. IV fluids. we will admit the patient for IV fluids and pain control. Lab Data Attestation: I reviewed the patient's lab results. 06/04/25 21:23 06/04/25 21:23 Labs: Lab Results 06/04/25 06/04/25 06/04/25 Range/Units 20:56 20:58 21:23 WBC 11.4 H (4.8-10.8) K/mm3 RBC 3.99 L (4.20-5.40) M/mm3 Hgb 11.8 L (12.0-15.0) g/dL Hct 35.2 (35.0-49.0) % MCV 88.2 (78.0-102.0) fL MCH 29.6 (27.0-31.0) pg MCHC 33.5 (32-36) g/dL RDW 12.5 (11.6-14.4) % Plt Count 305 (150-420) K/mm3 MPV 8.3 L (9.2-11.8) fl Immature Gran % (Auto) 0.9 H (0.0-0.0) % Neut % (Auto) 71.6 H (50.0-70.0) % Lymph % (Auto) 17.2 L (18.0-42.0) % [place] % (Auto) 7.1 (2.0-11.0) % Eos % (Auto) 2.7 (1.0-6.0) % Baso % (Auto) 0.5 (0.0-1.0) % Lymph # (Auto) 1.97 (1.10-4.50) K/mm3 [place] # (Auto) 0.81 (0.10-0.90) K/mm3 Eos # (Auto) 0.31 (0.02-0.50) K/mm3 Baso # (Auto) 0.06 (0.00-0.10) K/mm3 Abs Immat Gran (auto) 0.10 H (0.00-0.00) K/mm3 Absolute Neuts (auto) 8.19 H (1.70-7.20) K/mm3 Absolute Nucleated RBC 0.00 (0.00-0.00) K/mm3 Nucleated RBC % 0.0 (0-0.0) % PT 10.3 (9.50-12.1) Seconds INR 0.9 APTT 26.2 (23.9-30.70) Sec Sodium 137 (137-145) mmol/L Potassium 3.8 (3.4-5.0) mmol/L Chloride 107 (98-107) mmol/L Carbon Dioxide 21 L (22-30) mmol/L Anion Gap 9 (4-12) mmol/L BUN 11 (7-17) mg/dL Creatinine 0.55 L (0.7-1.0) mg/dL Estim Creat Clear Calc 117 ml/min Estimated GFR > 60 (59 - ) Glucose 151 H (65-110) mg/dL Calculated Osmolality 286 (285-295) mOsm/kg Lactic Acid 2.2 H (0.4-2.0) mmol/L Calcium 9.4 (8.4-10.2) mg/dL Total Bilirubin 0.7 (0.2-1.3) mg/dL AST 46 H (14-36) U/L ALT 43 H (6-35) U/L Alkaline Phosphatase 85 (38-126) U/L Total Protein 7.3 (6.3-8.2) g/dL Albumin 4.2 (3.5-5.1) g/dL Lipase 460 H (23-300) U/L Urine Color Light yellow (Yellow) Urine Appearance Clear (Clear) Urine pH 6.0 (5.0-8.0) Ur Specific [place] 1.010 (1.010-1.020) Urine Protein Negative (Negative) Urine Glucose (UA) Negative (Negative) Urine Ketones Negative (Negative) Ur Blood (Man) Negative (Negative) Urine Nitrate Negative (Negative) Urine Bilirubin Negative (Negative) Urine Urobilinogen 0.2 (0.2-1.0) mg/dL Leukocyte Esterase Rfl 1+ H (Negative) ABDULKADIR/UL Urine RBC 0-2 (0-2) /hpf Urine WBC 0-3 (0-3) /hpf Urine WBC Clumps Present H (None) /hpf Ur Squamous Epith Cells Few (Few) /hpf Urine Test Negative Imaging Data Attestation: I personally reviewed and interpreted this imaging study as follows: Radiologist's impression: CT scan of the abdomen and pelvis shows acute pancreatitis with localized attenuation Discharge Plan Discharge Clinical Impression: Acute pancreatitis Qualifiers: Pancreatitis type: unspecified pancreatitis type Acute pancreatitis complication: unspecified Qualified Code(s): K85.90 - Acute pancreatitis without necrosis or infection, unspecified Patient Disposition: Home Condition: Stable Patient Language: Haitian Prescriptions: No Action folic acid 1 mg tablet 1 mg PO DAILY oxycodone-acetaminophen [Percocet] 5-325 mg tablet 1 tablet PO Q6H PRN (Reason: pain) Qty: 14 0RF ondansetron 4 mg tablet,disintegrating 4 mg PO Q6H PRN (Reason: nausea and vomiting) Qty: 14 0RF ondansetron 4 mg tablet,disintegrating 4 mg PO Q6H PRN (Reason: nausea and vomiting) Qty: 14 0RF oxycodone 5 mg capsule 5 mg PO Q4H PRN (Reason: pain) Qty: 20 0RF ibuprofen 600 mg tablet 600 mg PO Q6H PRN (Reason: pain) Qty: 20 0RF ondansetron 4 mg tablet,disintegrating 4 mg PO Q8H PRN (Reason: nausea and vomiting) Qty: 14 0RF fluoxetine 20 mg capsule 20 mg PO DAILY clonazepam 0.5 mg tablet 0.5 mg PO QHS PRN (Reason: Anxiety) omeprazole 40 mg capsule,delayed release(DR/EC) 40 mg PO DAILY bupropion HCl 300 mg tablet extended release 24 hr 300 mg PO DAILY Follow-up/Referrals: Laurie Argueta MD [Primary Care Provider] - Time of Disposition: 23:32
--- OUTSIDE RECORDS SUMMARY | 2025-06-04 20:54 | XMS_ITS | Clinical Summary ---
Author Organization [facility] Address [address] [place] [address] Care Team Providers Care Painter Shipyard Name Role Phone Unavailable Primary Care Provider Unavailabl e Source Comments [facility],non-owned Affiliates and Associated Physician Practices is amultiple site organization consisting of ambulatory clinics and hospital sitesin [place], [place], [place] and [place]. This disclosure is being madepursuant to the Care Everywhere program and may not contain all information available regarding this patient. Last updated 18.[facility] Allergies No known active allergies Medications * Be aware that medications may not be up to date on this document. Alwaysverify current medications with the patient. drospirenone-et hinyl estradiol (MIL) 3-0.03 MG tablet Take 1 [...] pur e alcohol) 2-3 times per week Comments Unknown Sex and Gender Information Value Date Recorded Sex Assigned at Not on file Legal Sex Female 11:51 AM CDT Gender Identity Not on file Sexual Orientation Not on file Last Filed Vital Signs Vital Sign Reading Time Taken Comments Blood Pressure 116/82 12/14/2019 1:04 PM DNA ANALYST Pulse 99 12/14/2019 1:04 PM DNA ANALYST Temperature 36.7 C (98.1 F) 12/14/2019 1:04 PM DNA ANALYST Respiratory Rate 18 12/14/2019 1:04 PM DNA ANALYST Oxygen Saturation 99% 12/14/2019 1:04 PM DNA ANALYST Inhaled Oxygen Concentration - - Weight 73.2 kg (161 lb 6.4 oz) 12/14/2019 1:04 P M DNA ANALYST Height 165.1 cm (5' 5) 12/14/2019 1:04 PM DNA ANALYST Body Mass Index 26.86 12/14/2019 1:04 PM DNA ANALYST Plan of Treatment Health Maintenance Due Date Last Done Comments LIPID TESTING 1984 MAMMOGRAM 1984 HIV SCREENING 1999 DTAP/TDAP/TD VACCINES (1 - Tdap) 2003 HEPATITIS B VACCINE (1 of 3 - 19+ 3-dose series) 2003 HPV VACCINE (1 - 3-dose SCDM series) 2011 COVID-19 VACCINE ( - 2023-2 5 season) 2024 DEPRESSION SCREENING 10/27/2024 INFLUENZA VACCINE (#1) 2025 ZOSTER VACCINE (1 of 2) 2034 HEPATITIS C SCREENING Completed 10/21/2019 HIB VACCINE Aged Out No longer eligi ble based on patient's age to complete this topic MENINGOCOCCAL (Group B) VACC INE SHARED DECISION-MAKING Aged Out No longer eligibl e based on patient's age to complete this topic MENINGOCOCCAL GROUPS A/C/Y/W VACCINE Aged Out No longer eligible b ased on patient's age to complete this topic PNEUMOCOCCAL VACCINE Aged Out No long er eligible based on patient's age to complete this topic Goals Goal Patient Goal Type Associated Problems Recent Progress Patient-Stated? Author Medication Management General On track( 020 1:15 PM DNA ANALYST) Mary Dominguez, RN Note: Expected end date: ongoing Interventions: Take all medications as prescribed Insurance MEDICAID - OUT OF STATE [place]
--- OUTSIDE RECORDS SUMMARY | 2025-06-04 20:54 | XMS_ITS | Encounter Summary ---
Author Organization [facility] Address [address] [place] [id number] Care Team Providers Care Replenishment Associate Name Role Phone Laurie Argueta MD Primary Care Provider [phone] Encounter Details Date Type Department Care Team (Late st Contact Info) Description 04/03/2019 Abstract SFL CONVERSION [address] [place] [address] , Generic Conversion, Social History Tobacco Use Types Packs/Day Years Used Date Smoking Tobacco: Never Assessed Comments Unknown Sex and Gender Information Value Date Recorded Sex Assigned at Not on file Legal Sex Female 5:54 PM WET FINISHER Gender Identity Not on file Sexual Orientation Not on file documented as of this encounter Plan of Treatment Not on file documented as of this encounter Visit Diagnoses Not on filedocumented in this encounter Care Teams Replenishment Associate Relationship Specialty Start Date End Date Laurie Argueta MD [address] [place] [id number] PCP - General FAMILY PRACTICE 06/14/19 documented as of this encounter
--- OUTSIDE RECORDS SUMMARY | 2025-06-04 20:54 | XMS_ITS | Clinical Summary ---
Author Organization [facility] Address [address] [place] [address] Care Team Providers Care Inspector And Clerk Name Role Phone Laurie Argueta MD Primary Care Provider [phone] Allergies No known active allergies Medications buPROPion XL 300 MG 24 hr tablet Take 1 tablet (300 mg total) by mouth daily. Active vitamin D2, ergocalciferol, 02346 UNITS capsule Take 1 capsule (50,000 Units [...] she has not drank in a week [facility] [employer] Answer Date Recorded In the past 12 months has [employer], gas, oil, or water [employer] threatened to shut off services in your [...] place to sleep or slept in a correction (including now)? No 09/06/2023 Housing Stability Vital Sign Answer Thomas e Recorded In the last 12 months, was t here a time when you were not able to pay the mortgage or rent on time? No 08/13/2024 In the past 12 months, how m any times have you moved where you were living? 0 08/13/2024 At any time in the past 12 m [facility], were you homeless or living in a correction (including now)? 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 DYER Gender Identity Not on file Sexual Orientation [...] 4:24 AM CDT Height 165.1 cm (5' 5) 08/13/2024 6:15 AM CDT Body Mass Index 25.88 08/13/2024 6:15 AM CDT Plan of Treatment Health Maintenance Due Date Last Done Comments Cervical Cancer Screening Pap Smear (Age 30 to 64) Every 3 Years 1984 Annual Physical 1987 Hepatitis C 2002 DTaP, Tdap and Td Vaccines (1 - Tdap) 2003 Hepatitis B Vaccines (1 of 3 - 19+ 3-dose series) 2003 01/02/2009, 11/30/2008 Pneumococcal Vaccine: Pediatrics (0 to 5 Years) and At-Risk Patients (6 to 49 Years) (1 of 2 - PCV) 2003 HPV Vaccines (1 - 3-dose SCDM series) 2011 Cervical Cancer Screening Pap with HPV Testing (Age 30 to 64) Every 5 Years 2014 Cervical Cancer Screening with HPV 2014 Mammogram Screening 2024 COVID-19 Vaccine ( season) 2024 07/26/2022, 12/01/2021, 04/03/2021, Additional history exists Meningococcal B Vaccine Aged Out No l onger eligible based on patient's age to complete this topic Meningococcal Vaccine Aged Out No judy tram eligible based on patient's age to complete this topic RSV Immunizations Under 20 Months Aged Out No longer eligible based on patient's age to complete this topic Insurance [employer] Advance Directives * Full Code (Latest Code Status on File) Date Activated Date Inactivated Comments 08/13/2024 8:06 AM 08/15/2024 1:59 PM * Full Code Date Activated Date Inactivated Comments 08/13/2024 6:30 AM 08/13/2024 8:06 AM * Full Code Date Activated Date Inactivated Comments 09/05/2023 5:13 PM 09/08/2023 3:16 PM Care Teams Inspector And Clerk Relationship Specialty Start Date End Date Laurie Argueta MD [address] [place] [id number] PCP - General FAMILY PRACTICE 06/14/19
[2025-06-04 20:55] VITALS: BP 160/114; PULSE 114; RESP 21; TEMP 36.6; O2SAT 97
[2025-06-04 21:08] LABS: Add Urine Microscopic? YES; Appearance Urine Clear (Clear); Glucose Urine UA Negative (Negative); Leukocyte Esterase Ur 1+ LEU/UL (Negative); Nitrate Urine Negative (Negative); Specific Grav Ur 1.010 (1.010-1.020)
[2025-06-04 21:09] LABS: Pregnancy On Board Control Positive
[2025-06-04] MEDS: SODIUM CHLORIDE 0.9% IV 1,000 ML 999 ML IV CONT ×2 (21:15→22:05)
[2025-06-04] MEDS: HYDROmorphone HCL INJ (*CRX) 2 MG/ML VIAL 0.5 MG IV PUSH (21:21)
[2025-06-04] MEDS: ONDANSETRON INJ 4 MG/2 ML VIAL IV PUSH (21:21)
--- NOTE | 2025-06-04 21:25 | PC.NURSE ---
PATIENT HAS CALL LIGHT IN REACH. OFFERED BLANKET, DOES NOT WANT ONE AT THIS TIME
[2025-06-04 21:34] LABS: Hematocrit 35.2 % (35.0-49.0); Hemoglobin 11.8 g/dL (12.0-15.0); Immature Granulocyte Percent A 0.9 % (0.0-0.0); Lymphocytes Absolute Auto 1.97 K/mm3 (1.10-4.50); Mean Corpuscular HGB Conc 33.5 g/dL (32-36); Mean Corpuscular Hemoglobin 29.6 pg (27.0-31.0); Mean Corpuscular Volume 88.2 fL (78.0-102.0); Nucleated Red Blood Cells Absolute Auto 0.00 K/mm3 (0.00-0.00); Nucleated Red Blood Cells Perc 0.0 % (0-0.0); Platelet Count Result 305 K/mm3 (150-420); Red Blood Count 3.99 M/mm3 (4.20-5.40); White Blood Count 11.4 K/mm3 (4.8-10.8)
[2025-06-04 21:42] LABS: INR 0.9; Partial Thromboplastin Time 26.2 Sec (23.9-30.70); Prothrombin Time 10.3 Seconds (9.50-12.1)
[2025-06-04 21:44] LABS: Alanine Aminotransferase 43 U/L (6-35); Albumin Level 4.2 g/dL (3.5-5.1); Alkaline Phosphatase 85 U/L (38-126); Anion Gap 9 mmol/L (4-12); Aspartate Amino Transferase 46 U/L (14-36); Bilirubin,Total 0.7 mg/dL (0.2-1.3); Blood Urea Nitrogen 11 mg/dL (7-17); Calcium 9.4 mg/dL (8.4-10.2); Carbon Dioxide 21 mmol/L (22-30); Chloride 107 mmol/L (98-107); Estimated CRCL calculation 117 ml/min; Estimated Glomerular Filt Rate > 60; Glucose 151 mg/dL (65-110); Lipase 460 U/L (23-300); Osmolality Calculated 286 mOsm/kg (285-295); Potassium 3.8 mmol/L (3.4-5.0); Sodium 137 mmol/L (137-145); Total Protein 7.3 g/dL (6.3-8.2)
--- NOTE | 2025-06-04 21:53 | PC.NURSE ---
PATIENT BEING TRANSPORTED TO CT VIA STRETCHER
[2025-06-04] MEDS: HYDROmorphone HCL INJ (*CRX) 2 MG/ML VIAL 1 MG IV PUSH (22:08)
--- NOTE | 2025-06-04 22:16 | PC.NURSE ---
PATIENT HAS BEEN MEDICATED FOR PAIN. STATES HER PAIN HAS INCREASED SINCE GOING TO CT. VERBAL ORDER WAS RECEIVED FROM DR TOVAR.
--- NOTE | 2025-06-04 22:48 | PC.NURSE ---
PATIENT ROCKING BACK AND FORTH ON STRETCHER. REPORTS THAT CONTINUES TO HAVE PAIN. DR TOVAR IS AWARE. PATIENT CURRENTLY HAS HAD 1.5 MG OF DILAUDID IV PUSH. CALL LIGHT IN REACH.
--- NOTE | 2025-06-04 23:47 | PC.NURSE ---
ROOM ASSIGNMENT 204 AT [facility] PER BRITTANY POND
[2025-06-04 23:56] VITALS: BMI 29.2
--- NOTE | 2025-06-05 00:04 | PC.NURSE ---
PHONE REPORT GIVEN TO [facility] POND ON MED/SURG FLOOR
--- NOTE | 2025-06-05 00:05 | PC.NURSE ---
BRIANA WITH LAB CALLED TO DRAW BLOOD CULTURES BEFORE STARTING ABX
[2025-06-05] MEDS: HYDROmorphone HCL INJ (*CRX) 2 MG/ML VIAL 1 MG IV PUSH ×5 (00:13→20:24)
--- NOTE | 2025-06-05 00:17 | PC.NURSE ---
WAITING ON LAB TO COME DRAW BLOOD CULTURES BEFORE TAKING PATIENT TO FLOOR
--- NOTE | 2025-06-05 00:21 | PC.NURSE ---
LAB IS CURRENTLY AT THE BEDSIDE
--- NOTE | 2025-06-05 00:33 | PC.NURSE ---
PATIENT RESTING ON STRETCHER. CALM AND QUIET AT THIS TIME. FLOOR NURSE TO COME AND GET PATIENT.
[2025-06-05 00:35] VITALS: BP 122/74; PULSE 85; RESP 20; O2SAT 96
[2025-06-05 00:50] VITALS: BP 115/80; PULSE 82; RESP 15; TEMP 36.1; O2SAT 98
[2025-06-05] MEDS: SODIUM CHLORIDE 0.9% IV 1,000 ML 150 ML IV CONT ×4 (00:50→22:00)
[2025-06-05] MEDS: cefTRIAXone 1 GM in SODIUM CHLORIDE 0.9% IV 50 ML 100 ML IVPB (00:50)
--- NOTE | 2025-06-05 01:04 | ADMGEN ---
This patient, Amara Chery, was admitted to 2nd Floor Room 204-2. Patient/family oriented to hospital policies and general routines including ID bracelet, bed and alarms, visiting hours, pain management, procedures, bathroom and other care routines, personal items, smoking policy, room service/diet, and visiting hours. Information on how to activate the Rapid Response Team has been discussed. Patient/Family are encouraged to report perceived risks to care and to ask questions if they do not understand what they are told or what they should do.
[2025-06-05] MEDS: NICOTINE (*PBKC) 21 MG PATCH 1 PATCH TRANSDERM (01:49)
[2025-06-05 03:41] VITALS: BP 107/75; PULSE 76; RESP 16; TEMP 36.3; O2SAT 99
[2025-06-05 07:04] LABS: Hematocrit 30.7 % (35.0-49.0); Hemoglobin 10.1 g/dL (12.0-15.0); Immature Granulocyte Percent A 1.0 % (0.0-0.0); Lymphocytes Absolute Auto 1.80 K/mm3 (1.10-4.50); Mean Corpuscular HGB Conc 32.9 g/dL (32-36); Mean Corpuscular Hemoglobin 29.7 pg (27.0-31.0); Mean Corpuscular Volume 90.3 fL (78.0-102.0); Nucleated Red Blood Cells Absolute Auto 0.00 K/mm3 (0.00-0.00); Nucleated Red Blood Cells Perc 0.0 % (0-0.0); Platelet Count Result 228 K/mm3 (150-420); Red Blood Count 3.40 M/mm3 (4.20-5.40); White Blood Count 8.6 K/mm3 (4.8-10.8)
[2025-06-05 07:18] LABS: Alanine Aminotransferase 31 U/L (6-35); Albumin Level 3.6 g/dL (3.5-5.1); Alkaline Phosphatase 70 U/L (38-126); Anion Gap 5 mmol/L (4-12); Aspartate Amino Transferase 34 U/L (14-36); Bilirubin,Total 0.5 mg/dL (0.2-1.3); Blood Urea Nitrogen 8 mg/dL (7-17); Calcium 7.9 mg/dL (8.4-10.2); Carbon Dioxide 23 mmol/L (22-30); Chloride 111 mmol/L (98-107); Estimated CRCL calculation 120 ml/min; Estimated Glomerular Filt Rate > 60; Glucose 112 mg/dL (65-110); Lipase 307 U/L (23-300); Osmolality Calculated 287 mOsm/kg (285-295); Potassium 3.5 mmol/L (3.4-5.0); Sodium 139 mmol/L (137-145); Total Protein 6.3 g/dL (6.3-8.2)
[2025-06-05 07:50] VITALS: BP 138/81; PULSE 98; RESP 18; TEMP 36.6; O2SAT 99
[2025-06-05 08:35] VITALS: PULSE 98; RESP 18; O2SAT 99
--- NOTE | 2025-06-05 10:31 | PM.IMHP ---
H&P: HPI History of Present Illness Date/Time: 06/05/25 10:31 Chief Complaint: Acute Pancreatitis Narrative: This 40 year old with Anxiety and depression with a history of pancreatitis. Patient informed me she had a drink 3 weeks ago but has not drank lately. Patient states her drink of choice is V[place]ak . Patient states she has had abdominal pain that shoots around to her back. Patient AST46 ..34 ALT 43..41 Lactic 2.2..0.9 Lipase 406..307 she remained NPO with IV fluids and IV Dilaudid. Patient has a lot of anxiety in which I will order home medication and her PRN medication and we will from a distant monitor for alchol withdrawl if found we will initiate CIWA. Pt denies any difficulty breathing and after 24 hour we will deesculate her pain medication and attempt to get her to clear liquids. At this time patien is resting well Review of Systems Review of Systems: abdominal pain All systems reviewed & are unremarkable except as noted in HPI and below PMFSH Past Medical History Medical History (Updated 06/05/25 @ 10:38 by Quinn Fitzpatrick NP) Depression Anxiety GERD (gastroesophageal reflux disease) Surgical History Surgical History History of tonsillectomy Family History Family History Other Unknown family medical history Social History Social History Smoking packs per day: 0.5 Smoking cigarettes per day: 10.0 Years smoked: 24 Smoking pack-years: 12.00 Smoking status: Current every day smoker Tobacco type: cigarettes Second hand tobacco smoke exposure: Yes Alcohol intake: current Drinks per week: 2 Substance use: current Substance use type: marijuana Lack of Transportation: No Lack of Food: Never True Current Housing: I Have Housing Concerned About Future Housing: No Difficulty Paying Gas/Electric Bills: YES Difficulty Paying for Meds: No Currently Unemployed: No Education: High School Diploma/GED Difficulty w/ Childcare or Family Care: No Spiritual care concerns: No Meds Home Medications and Allergies Home Medications ?Medication ?Instructions ?Recorded ?Confirmed ?Type bupropion HCl 300 mg 24 hr tablet, 300 mg PO DAILY 07/18/20 06/05/25 History extended release clonazepam 0.5 mg tablet 0.5 mg PO QHS PRN Anxiety 12/04/21 06/05/25 History folic acid 1 mg tablet 1 mg PO DAILY 02/05/24 06/05/25 History ibuprofen 600 mg tablet 600 mg PO Q6H PRN pain #20 tabs 04/18/24 06/05/25 Rx Allergies Allergy/AdvReac Type Severity Reaction Status Date / Time No Known Allergies Allergy Verified 06/04/25 22:15 Vital Signs Vital Signs - 24 hr 06/04/25 20:55 06/05/25 00:35 06/05/25 00:50 Temperature 97.8 F 97.0 F L Pulse Rate 114 H 85 82 Respiratory Rate 21 H 20 15 Blood Pressure 160/114 H 122/74 115/80 Pulse Oximetry 97 96 98 Oxygen Delivery Room Air Room Air Room Air 06/05/25 03:41 06/05/25 07:50 06/05/25 08:35 Temperature 97.3 F L 98 F Pulse Rate 76 98 98 Respiratory Rate 16 18 18 Blood Pressure 107/75 138/81 Pulse Oximetry 99 99 99 Oxygen Delivery Room Air Room Air Room Air Exam Const: General: comfortable Other: crying with anxiety Eyes: General: appearance normal, both eyes and all related structures Neck: Neck: supple Resp: Effort & Inspection: normal respiratory effort Cardio: Rate: regular rate GI: GI Palp: Yes Soft to palpation Auscultation: normal bowel sounds Skin: General skin exam: normal color Neuro: General: gait normal Speech: normal speech Extrem: General: normal to inspection Psych: Affect: Anxious affect present H&P: Results Labs Labs: Short CBC 06/04/25 06/05/25 Range/Units 21:23 06:14 WBC 11.4 H 8.6 (4.8-10.8) K/mm3 Hgb 11.8 L 10.1 L (12.0-15.0) g/dL Hct 35.2 30.7 L (35.0-49.0) % Plt Count 305 228 (150-420) K/mm3 BMP 06/04/25 06/05/25 21:23 06:14 Sodium 137 139 Potassium 3.8 3.5 Chloride 107 111 H Carbon Dioxide 21 L 23 BUN 11 8 Creatinine 0.55 L 0.54 L Glucose 151 H 112 H Calcium 9.4 7.9 L Liver Function 06/04/25 06/05/25 Range/Units 21:23 06:14 Total Bilirubin 0.7 0.5 (0.2-1.3) mg/dL AST 46 H 34 (14-36) U/L ALT 43 H 31 (6-35) U/L Alkaline Phosphatase 85 70 (38-126) U/L Albumin 4.2 3.6 (3.5-5.1) g/dL Urine 06/04/25 Range/Units 20:56 Urine Color Light yellow (Yellow) Urine Appearance Clear (Clear) Urine pH 6.0 (5.0-8.0) Ur Specific [place] 1.010 (1.010-1.020) Urine Protein Negative (Negative) Urine Glucose (UA) Negative (Negative) Assessment and Plan Assessment and plan (1) Acute pancreatitis: Qualifiers: Acute pancreatitis complication: unspecified Pancreatitis type: unspecified pancreatitis type Qualified Code(s): K85.90 - Acute pancreatitis without necrosis or infection, unspecified Code(s): K85.90 - Acute pancreatitis without necrosis or infection, unspecified Status: Acute Assessment and Plan: -- IV antibioitic --NPO --IV pain medication - --Monitor labs AST 34 ALT 41 Lipase 307 (2) Cystitis: Code(s): N30.90 - Cystitis, unspecified without hematuria Status: Acute Assessment and Plan: IV rocephin Plan DVT Up in recliner and ambulate PPI Protonix USE IS
[2025-06-05] MEDS: LORazepam INJ (*CRX) 2 MG/ML VIAL 1 MG IV PUSH ×2 (11:06→17:46)
[2025-06-05] MEDS: PANTOPRAZOLE SODIUM IV 40 MG VIAL IV PUSH (11:07)
[2025-06-05] MEDS: buPROPion HCL XL (24 HR) 150 MG TABCR 300 MG PO (11:07)
[2025-06-05] MEDS: KETOROLAC 15 MG/ML VIAL (*BKC) IV PUSH ×2 (11:19→17:46)
[2025-06-05 16:40] VITALS: BP 117/64; PULSE 89; RESP 16; TEMP 36.6; O2SAT 98
--- NOTE | 2025-06-05 17:40 | PC.NURSE ---
Patient asking to try advancing diet. Provided with jello cup and apple juice. Patient states that within 30 minutes of eating she started experiencing increase in abdominal pain. Patient given pain medication per order. Patient will continue with NPO diet through the night.
[2025-06-05] MEDS: clonazePAM (*CRX) 0.5 MG TABLET PO (20:23)
[2025-06-06] VITALS: BP 120/68; PULSE 86; RESP 16; TEMP 36.4; O2SAT 98
[2025-06-06] MEDS: cefTRIAXone 1 GM in SODIUM CHLORIDE 0.9% IV 50 ML 100 ML IVPB (00:30)
[2025-06-06] MEDS: KETOROLAC 15 MG/ML VIAL (*BKC) IV PUSH ×2 (02:36→08:36)
[2025-06-06] MEDS: LORazepam INJ (*CRX) 2 MG/ML VIAL 1 MG IV PUSH ×3 (02:38→14:54)
[2025-06-06] MEDS: SODIUM CHLORIDE 0.9% IV 1,000 ML 150 ML IV CONT (04:57)
[2025-06-06] MEDS: HYDROmorphone HCL INJ (*CRX) 2 MG/ML VIAL 1 MG IV PUSH ×2 (05:59→11:11)
[2025-06-06 07:51] LABS: Hematocrit 28.6 % (35.0-49.0); Hemoglobin 9.4 g/dL (12.0-15.0); Immature Granulocyte Percent A 0.9 % (0.0-0.0); Lymphocytes Absolute Auto 1.32 K/mm3 (1.10-4.50); Mean Corpuscular HGB Conc 32.9 g/dL (32-36); Mean Corpuscular Hemoglobin 30.0 pg (27.0-31.0); Mean Corpuscular Volume 91.4 fL (78.0-102.0); Nucleated Red Blood Cells Absolute Auto 0.00 K/mm3 (0.00-0.00); Nucleated Red Blood Cells Perc 0.0 % (0-0.0); Platelet Count Result 175 K/mm3 (150-420); Red Blood Count 3.13 M/mm3 (4.20-5.40); White Blood Count 6.9 K/mm3 (4.8-10.8)
[2025-06-06 08:00] VITALS: BP 141/84; PULSE 87; RESP 20; TEMP 36.1; O2SAT 97
[2025-06-06 08:08] LABS: Alanine Aminotransferase 28 U/L (6-35); Albumin Level 3.0 g/dL (3.5-5.1); Alkaline Phosphatase 63 U/L (38-126); Anion Gap 6 mmol/L (4-12); Aspartate Amino Transferase 37 U/L (14-36); Bilirubin,Total 0.4 mg/dL (0.2-1.3); Blood Urea Nitrogen 5 mg/dL (7-17); Calcium 7.7 mg/dL (8.4-10.2); Carbon Dioxide 21 mmol/L (22-30); Chloride 111 mmol/L (98-107); Estimated CRCL calculation 127 ml/min; Estimated Glomerular Filt Rate > 60; Glucose 106 mg/dL (65-110); Osmolality Calculated 283 mOsm/kg (285-295); Potassium 3.5 mmol/L (3.4-5.0); Sodium 138 mmol/L (137-145); Total Protein 5.4 g/dL (6.3-8.2)
[2025-06-06] MEDS: PANTOPRAZOLE SODIUM IV 40 MG VIAL IV PUSH (08:35)
[2025-06-06] MEDS: NICOTINE (*PBKC) 21 MG PATCH 1 PATCH TRANSDERM (08:36)
[2025-06-06] MEDS: FOLIC ACID 1 MG TABLET PO (08:37)
[2025-06-06] MEDS: buPROPion HCL XL (24 HR) 150 MG TABCR 300 MG PO (08:37)
[2025-06-06] MEDS: ENOXAPARIN 40 MG/0.4 ML SYRINGE SUB-Q (08:37)
--- NOTE | 2025-06-06 10:43 | P.PNIM_ITS ---
Progress Note: A&P Assessment and Plan (1) Acute pancreatitis: Qualifiers: Acute pancreatitis complication: unspecified Pancreatitis type: unspecified pancreatitis type Qualified Code(s): K85.90 - Acute pancreatitis without necrosis or infection, unspecified Code(s): K85.90 - Acute pancreatitis without necrosis or infection, unspecified Status: Acute Assessment and Plan: -- IV antibioitic --NPO --IV pain medication - --Monitor labs AST 34 ALT 41 Lipase 307 (2) Cystitis: Code(s): N30.90 - Cystitis, unspecified without hematuria Status: Acute Assessment and Plan: IV rocephin Plan DVT Up in recliner and ambulate PPI Protonix USE IS Subjective Date/time seen: 06/06/25 10:43 Interval history: Patient still require pain medication consistently and having nausea with eating jello we will continue to monitor and treat. labs are starting to trend down we will dessulate pain medication at this time and continue to monitor. Exam Const: General: healthy appearing, comfortable, ill appearing and well nourished; No no acute distress Nutritional Appearance: well nourished Orientation/consciousness: patient oriented x3 Limitations: no limitations Other: crying with anxiety HENMT: Head: normal to inspection Ears: external ears normal Face/Nose/Sinus: Normal external nose present Eyes: General: appearance normal, both eyes and all related structures Conjunctivae: conjunctivae normal Pupils: Equal, round and reactive pupils present EOM: EOMs intact bilaterally Neck: Neck: normal visual inspection, no meningeal signs and supple Chest: Chest palpation & inspection: normal inspection of the chest Resp: Effort & Inspection: normal respiratory effort and not labored Ausc ultation: clear to auscultation bilaterally and no crackles Cardio: Rate: regular rate Rhythm: regular rhythm Heart sounds: no murmurs GI: Inspection: non-distended Auscultation: normal bowel sounds and Hypoactive bowel sounds present : General: Yes bladder normal to palpation and Yes no CVA tenderness Bimanual exam- vagina & uterus: bladder normal to palpation Back/Spine/Pelvis: Back: no CVA tenderness Skin: General skin exam: normal color Rashes: no rashes Wounds: no wounds Neuro: General: patient oriented x3, gait normal, moves all extremities and no meningeal signs Cranial nerves: Yes Equal, round and reactive pupils present Speech: normal speech Extrem: General: normal to inspection, no clubbing, cyanosis or edema and no pedal edema Psych: Mental Status: mental status grossly normal Affect: normal affect and Anxious affect present Attitude: cooperative Objective Data Vital Signs Vital Signs: Vital Signs - 24 hr 06/05/25 16:40 06/06/25 00:00 06/06/25 08:00 Temperature 97.9 F 97.6 F 97 F L Pulse Rate 89 86 87 Respiratory Rate 16 16 20 Blood Pressure 117/64 120/68 141/84 H Pulse Oximetry 98 98 97 Oxygen Delivery Room Air Room Air Room Air Intake/Output Intake/Output: Intake & Output 06/03/25 06/04/25 06/05/25 06/06/25 23:59 23:59 23:59 23:59 Intake Total 1999 3367.5 1075 Balance 1999 3367.5 1075 Meds/Results Medications: Active Medications Generic Name Dose Route Start Last Admin Trade Name Freq PRN Reason Stop Dose Admin Acetaminophen 650 mg 06/04/25 23:39 Acetaminophen 325 Mg Tablet PO Q4H PRN Mild Pain (1-3) or Fever Bupropion HCl 300 mg 06/06/25 09:00 06/06/25 08:37 Bupropion Hcl Xl (24 Hr) 150 Mg Tabcr PO 300 mg DAILY TRACY Administration Clonazepam 0.5 mg 06/05/25 10:28 06/05/25 20:23 Clonazepam (*Crx) 0.5 Mg Tablet PO 0.5 mg QHS PRN Administration Anxiety Enoxaparin Sodium 40 mg 06/05/25 09:00 06/06/25 08:37 Enoxaparin 40 Mg/0.4 Ml Syringe SUB-Q 40 mg DAILY TRACY Administration Folic Acid 1 mg 06/06/25 09:00 06/06/25 08:37 Folic Acid 1 Mg Tablet PO 1 mg DAILY TRACY Administration Hydromorphone HCl 1 mg 06/04/25 23:45 06/06/25 05:59 Hydromorphone Hcl Inj (*Crx) 2 Mg/Ml Vial IV PUSH 1 mg Q4H PRN Administration Pain Rated 7-10 Sodium Chloride 1,000 mls @ 150 mls/hr 06/04/25 23:40 06/06/25 04:57 Normal Saline Iv IV CONT 150 mls/hr .Q6H40M TRACY Administration Ceftriaxone Sodium 1 gm/ 50 mls @ 100 mls/hr 06/05/25 00:00 06/06/25 01:00 Sodium Chloride IVPB Infused Q24H TRACY Infusion Ibuprofen 600 mg 06/05/25 10:28 Ibuprofen 600 Mg Tablet PO Q6H PRN pain 4-6 Ketorolac Tromethamine 15 mg 06/05/25 11:20 06/06/25 08:36 Ketorolac 15 Mg/Ml Vial (*Bkc) IV PUSH 15 mg Q6H PRN Administration Pain Rated 4-6 Lorazepam 1 mg 06/05/25 10:29 06/06/25 08:36 Lorazepam Inj (*Crx) 2 Mg/Ml Vial IV PUSH 1 mg Q6H PRN Administration Anxiety Naloxone HCl 0.1 mg 06/04/25 23:39 Naloxone Hcl 0.4 Mg/Ml Vial IV PUSH Q2M PRN Opiate Reversal Nicotine 1 patch 06/05/25 01:40 06/06/25 08:36 Nicotine (*Pbkc) 21 Mg Patch TRANSDERM 1 patch DAILY TRACY Administration Ondansetron HCl 4 mg 06/04/25 23:39 Ondansetron Inj 4 Mg/2 Ml Vial IV PUSH Q6H PRN Nausea And Vomiting Pantoprazole Sodium 40 mg 06/06/25 09:00 06/06/25 08:35 Pantoprazole Sodium Iv 40 Mg Vial IV PUSH 40 mg QAM TRACY Administration Radiology Results: ITS Impressions Abdomen/Pelvis CT 06/05/25 07:50 IMPRESSION: 1. Acute interstitial pancreatitis. 2. Prominent diffuse hepatic steatosis. Labs Labs: Laboratory Results - last 24 hr 06/06/25 07:41 WBC 6.9 RBC 3.13 L Hgb 9.4 L Hct 28.6 L MCV 91.4 MCH 30.0 MCHC 32.9 RDW 12.7 Plt Count 175 MPV 8.0 L Immature Gran % (Auto) 0.9 H Neut % (Auto) 67.8 Lymph % (Auto) 19.2 [place] % (Auto) 8.7 Eos % (Auto) 2.8 Baso % (Auto) 0.6 Lymph # (Auto) 1.32 [place] # (Auto) 0.60 Eos # (Auto) 0.19 Baso # (Auto) 0.04 Abs Immat Gran (auto) 0.06 H Absolute Neuts (auto) 4.66 Absolute Nucleated RBC 0.00 Nucleated RBC % 0.0 Sodium 138 Potassium 3.5 Chloride 111 H Carbon Dioxide 21 L Anion Gap 6 BUN 5 L Creatinine 0.51 L Estim Creat Clear Calc 127 Estimated GFR > 60 Glucose 106 Calculated Osmolality 283 L Calcium 7.7 L Total Bilirubin 0.4 AST 37 H ALT 28 Alkaline Phosphatase 63 Total Protein 5.4 L Albumin 3.0 L
[2025-06-06] MEDS: HYDROcodone/acetaminophen (*CRX) 5-325 MG TABLET 1 TAB PO (15:09)
[2025-06-06 16:00] VITALS: BP 130/84; PULSE 86; RESP 18; TEMP 36.6; O2SAT 98
--- NOTE | 2025-06-06 16:10 | PC.NURSE ---
VIRGINIA RODRÍGUEZ IS LEAVING [facility] AGAINST MEDICAL ADVICE. 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 PT STATES SHE IS DOING BETTER & I AM READY TO GO HOME. CHARGE NURSE CONTACTED PROVIDER WHO DECLINED PT D/C AT THIS TIME. THE PT AND HER ARE BOTH ALERT, ORIENTED, OF SOUND MIND, AND CALM DEMEANOR AT THIS TIME. THOROUGHLY EXPLAINED RISKS CONCERNING PATIENT LEAVING AGAINST MEDICAL ADVICE AND RELEASE OF RESPONSIBILITIES OF [facility] AND 'S AFFILIATES. INFORMED PT THAT IF SHE PLANS TO RESUME SMOKING CIGARETTES WHEN SHE LEAVES, THAT SHE MUSY REMOVE HER NICOTINE PATCH DUE TO INCREASED RISK FOR CARDIAC EVENTS, BLOOD CLOTS, HEART ATTACK, AND STROKE. THE PT AND HER VERBALIZED UNDERSTANDING. PT SIGNED AMA FORM AND LEFT FACILITY @ 1610. PROVIDER AND CHARGE NURSE NOTIFIED.
--- NOTE | 2025-06-06 16:10 | PC.NURSE ---
Patient stated to nurse- I think I'm ready to leave. nurse confirmed You want to sign out AMA? patient responded in the affirmative. yes please RN notified nursing supervisor fur dressing Abby Paniagua, charge nurse notified provider, no new orders were received. Reviewed with patient the risks and potential complications of leaving AMA. IV site removed. Patient signed AMA paperwork. Abby Paniagua also reviewed AMA protocol with patient. Patient verbalized understanding, ambulated off floor.
--- OUTSIDE RECORDS SUMMARY | 2025-06-07 07:41 | XMS_ITS | Encounter Summary ---
Author Organization [facility] Address [address] [place] [id number] Care Team Providers Care Retail Greeting Card Merchandiser Name Role Phone Laurie Argueta MD Primary Care Provider [phone] Encounter Details Date Type Department Care Team (Late st Contact Info) Description 04/03/2019 Abstract SFL CONVERSION [address] [place] [address] , Generic Conversion, Social History Tobacco Use Types Packs/Day Years Used Date Smoking Tobacco: Never Assessed Comments Unknown Sex and Gender Information Value Date Recorded Sex Assigned at Not on file Legal Sex Female 5:54 PM JOINT CUTTER Gender Identity Not on file Sexual Orientation Not on file documented as of this encounter Plan of Treatment Not on file documented as of this encounter Visit Diagnoses Not on filedocumented in this encounter Care Teams Retail Greeting Card Merchandiser Relationship Specialty Start Date End Date Laurie Argueta MD [address] [place] [phone] PCP - General FAMILY PRACTICE 06/14/19 documented as of this encounter
--- OUTSIDE RECORDS SUMMARY | 2025-06-07 07:41 | XMS_ITS | Clinical Summary ---
Author Organization [facility] Address [address] [place] [address] Care Team Providers Care Gre Tutor Name Role Phone Unavailable Primary Care Provider Unavailabl e Source Comments [facility],non-owned Affiliates and Associated Physician Practices is amultiple site organization consisting of ambulatory clinics and hospital sitesin [place], [place], [place] and [place]. This disclosure is being madepursuant to the Care Everywhere program and may not contain all information available regarding this patient. Last updated 18.[facility] Allergies No known active allergies Medications * [...] Comments Blood Pressure 116/82 12/14/2019 1:04 PM MANAGER OF APPLICATIONS DEVELOPMENT Pulse 99 12/14/2019 1:04 PM MANAGER OF APPLICATIONS DEVELOPMENT Temperature 36.7 C (98.1 F) 12/14/2019 1:04 PM MANAGER OF APPLICATIONS DEVELOPMENT Respiratory Rate 18 12/14/2019 1:04 PM MANAGER OF APPLICATIONS DEVELOPMENT Oxygen Saturation 99% 12/14/2019 1:04 PM MANAGER OF APPLICATIONS DEVELOPMENT Inhaled Oxygen Concentration - - Weight 73.2 kg (161 lb 6.4 oz) 12/14/2019 1:04 P M MANAGER OF APPLICATIONS DEVELOPMENT Height 165.1 cm (5' 5) 12/14/2019 1:04 PM MANAGER OF APPLICATIONS DEVELOPMENT Body Mass Index 26.86 12/14/2019 1:04 PM MANAGER OF APPLICATIONS DEVELOPMENT Plan of Treatment Health Maintenance Due Date [...] Management General On track( 020 1:15 PM MANAGER OF APPLICATIONS DEVELOPMENT) Mary Dominguez, RN Note: Expected end date: ongoing Interventions: Take all medications as prescribed Insurance MEDICAID - OUT OF STATE ANTHEM
--- OUTSIDE RECORDS SUMMARY | 2025-06-07 07:41 | XMS_ITS | Clinical Summary ---
Author Organization [facility] Address [address] [place] [address] Care Team Providers Care Escort Car Driver Name Role Phone Laurie Argueta MD Primary Care Provider [phone] Allergies No known active allergies Medications buPROPion XL 300 MG 24 hr tablet Take 1 tablet (300 mg total) by mouth daily. Active vitamin D2, ergocalciferol, 30142 UNITS capsule Take 1 capsule (50,000 Units [...] she has not drank in a week [facility] [employer] Answer Date Recorded In the past 12 months has [employer], gas, oil, or water [employer] threatened to shut off services in your [...] place to sleep or slept in a alf (including now)? No 09/06/2023 Housing Stability Vital Sign Answer Thomas e Recorded In the last 12 months, was t here a time when you were not able to pay the mortgage or rent on time? No 08/13/2024 In the past 12 months, how m any times have you moved where you were living? 0 08/13/2024 At any time in the past 12 m [facility], were you homeless or living in a alf (including now)? No 08/13/2024 Comments No Sex and Gender Information Value Date Recorded Sex Assigned at Not on file Legal Sex Female 5:54 PM REIMBURSEMENT REP Gender Identity Not on file Sexual Orientation [...] patient's age to complete this topic Insurance [place] Advance Directives * Full Code (Latest Code Status on File) Date Activated Date Inactivated Comments 08/13/2024 8:06 AM 08/15/2024 1:59 PM * Full Code Date Activated Date Inactivated Comments 08/13/2024 6:30 AM 08/13/2024 8:06 AM * Full Code Date Activated Date Inactivated Comments 09/05/2023 5:13 PM 09/08/2023 3:16 PM Care Teams Escort Car Driver Relationship Specialty Start Date End Date Laurie Argueta MD [address] [place] [address] PCP - General FAMILY PRACTICE 06/14/19
--- NOTE | 2025-06-07 12:47 | PC.NURSE ---
PT D/C FOLLOW UP CALL COMPLETED POST AMA DEPARTURE. VIRGINIA STATES, I FEEL SO MUCH BETTER. I JUST NEED A NOTE FOR WORK. EXPLAINED TO PT THAT DUE TO AMA, PROVIDER HAS NOT TECHNICALLY RELEASED HER BACK TO WORK. PT ACCEPTED NOTE THAT STATES SHE WAS HOSPITALIZED. PT DENIES OTHER QUESTIONS OR CONCERNS.
== END 2025-06-06 16:15 | disposition left against medical advice (07) ==
LOC: CHSED 23:33 → CHS2ND 06-05 00:15
PROVIDERS: Nurse Practitioner Family; Admitting Provider Internal Medicine; Emergency Provider Emergency Medicine; PCP Family Medicine; Visit Provider Internal Medicine
DX: K85.90 Acute pancreatitis without necrosis or infection, unspecified (principal); N30.90 Cystitis, unspecified without hematuria; F41.9 Anxiety disorder, unspecified; K21.9 Gastro-esophageal reflux disease without esophagitis; F32.A Depression, unspecified; F17.210 Nicotine dependence, cigarettes, uncomplicated; F12.90 Cannabis use, unspecified, uncomplicated
CPT/HCPCS: 36415; 74177; 80053; 81001; 81025; 83605; 83690; 85025; 85610; 85730; 87040; 87086; 96361; 96372; 96374; 96375; 96376; 99285; A9270; G0378; G0379; J0696; J1171; J1650; J1885; J2060; J2405; J2470; J7030; Q9967

== ENCOUNTER 2025-07-22 00:43 | Observation (INO) | payer BC, OTHER, SELFPAY ==
[2025-07-22] VITALS (7 sets, daily range): BP systolic 122–148; BP diastolic 77–93; PULSE 71–96; RESP 16–20; TEMP 36.3–36.7; O2SAT 96–99; BMI 28.5
--- NOTE | ~2025-07-22 | CT_ITS ---
CT abdomen pelvis w con Clinical History: ALL OVER ABDOMEN PAIN/HX OF PANCREATITIS AND KIDNEY STONES . Comparison: CT abdomen and pelvis 06/04/2025 Technique: Axial images lung bases to symphysis pubis 100 mL Omnipaque 350 Coronal, sagittal reformats CT images acquired with automatic exposure control for dose reduction DLP: 488 mGy-cm Findings: Lung bases: Clear. Visualized heart and pericardium: Unremarkable. Liver: Enlarged. Steatosis. Gallbladder: Unremarkable. Spleen: Unremarkable. Pancreas: Surrounding stranding and fluid. Mild ductal dilatation. Small probable side branch IPMT anterior body unchanged. Mildly heterogeneous enhancement. Regional vessels patent. Adrenal glands: Unremarkable. Kidneys: Right kidney- No hydronephrosis. No renal stones. Left kidney- No hydronephrosis. No renal stones. Distal esophagus/stomach: Unremarkable. Small bowel loops: Normal caliber and wall thickness. Colon: Normal caliber and wall thickness. Normal RLQ appendix. Nodes: No enlarged nodes. Peritoneum: No ascites. No free air. Urinary bladder: Unremarkable. Uterus: Unremarkable. Adnexa: No masses. Bones: No acute bony abnormality. Soft tissues: Unremarkable. Aorta: No aneurysm or dissection. IVC: Unremarkable. Main portal vein/SMV/splenic vein: Patent. IMPRESSION: 1. Again consistent with acute pancreatitis, without complicating features. Reviewed, dictated and finalized at location R.
--- OUTSIDE RECORDS SUMMARY | 2025-07-22 00:47 | XMS_ITS | Clinical Summary ---
Author Organization [facility] Address [address] [place] [address] Care Team Providers Care Channel Opener Name Role Phone Laurie Argueta MD Primary Care Provider [phone] Allergies No known active allergies Medications buPROPion XL 300 MG 24 hr tablet Take 1 tablet (300 mg total) by mouth daily. Active vitamin D2, ergocalciferol, 16210 UNITS capsule Take 1 capsule (50,000 Units [...] she has not drank in a week [facility] [email or web address] Answer Date Recorded In the past 12 months has [employer], gas, oil, or water [employer] threatened to shut off services in your [...] place to sleep or slept in a jail (including now)? No 09/06/2023 Housing Stability Vital Sign Answer Thomas e Recorded In the last 12 months, was t here a time when you were not able to pay the mortgage or rent on time? No 08/13/2024 In the past 12 months, how m any times have you moved where you were living? 0 08/13/2024 At any time in the past 12 m [facility], were you homeless or living in a jail (including now)? No 08/13/2024 Comments No Sex and Gender Information Value Date Recorded Sex Assigned at Not on file Legal Sex Female 5:54 PM HIDE HANDLER Gender Identity Not on file Sexual Orientation [...] Mammogram Screening 2024 COVID-19 Vaccine ( season) 2025 07/26/2022, 12/01/2021, 04/03/2021, Additional history exists Meningococcal B Vaccine Aged Out No l onger eligible based on patient's age to complete this topic Meningococcal Vaccine Aged Out No judy tram eligible based on patient's age to complete this topic RSV Immunizations Under 20 Months Aged Out No longer eligible based on patient's age to complete this topic Insurance [place] Advance Directives * Full Code (Latest Code Status on File) Date Activated Date Inactivated Comments 08/13/2024 8:06 AM 08/15/2024 1:59 PM * Full Code Date Activated Date Inactivated Comments 08/13/2024 6:30 AM 08/13/2024 8:06 AM * Full Code Date Activated Date Inactivated Comments 09/05/2023 5:13 PM 09/08/2023 3:16 PM Care Teams Channel Opener Relationship Specialty Start Date End Date Laurie Argueta MD [address] [place] [address] PCP - General FAMILY PRACTICE 06/14/19
--- OUTSIDE RECORDS SUMMARY | 2025-07-22 00:47 | XMS_ITS | Clinical Summary ---
Author Organization [facility] Address [address] [address] Care Team Providers Care Tar Processing Technician Name Role Phone Unavailable Primary Care Provider Unavailabl e Source Comments [facility],non-owned Affiliates and Associated Physician Practices is amultiple site organization consisting of ambulatory clinics and hospital sitesin [place], [place], [place] and [place]. This disclosure is being madepursuant to the Care Everywhere program and may not contain all information available regarding this patient. Last updated 18.[facility] Allergies No known active allergies Medications * [...] Comments Blood Pressure 116/82 12/14/2019 1:04 PM DENTAL ASSISTANT INSTRUCTOR Pulse 99 12/14/2019 1:04 PM DENTAL ASSISTANT INSTRUCTOR Temperature 36.7 C (98.1 F) 12/14/2019 1:04 PM DENTAL ASSISTANT INSTRUCTOR Respiratory Rate 18 12/14/2019 1:04 PM DENTAL ASSISTANT INSTRUCTOR Oxygen Saturation 99% 12/14/2019 1:04 PM DENTAL ASSISTANT INSTRUCTOR Inhaled Oxygen Concentration - - Weight 73.2 kg (161 lb 6.4 oz) 12/14/2019 1:04 P M DENTAL ASSISTANT INSTRUCTOR Height 165.1 cm (5' 5) 12/14/2019 1:04 PM DENTAL ASSISTANT INSTRUCTOR Body Mass Index 26.86 12/14/2019 1:04 PM DENTAL ASSISTANT INSTRUCTOR Plan of Treatment Health Maintenance Due Date Last Done Comments LIPID TESTING 1984 MAMMOGRAM 1984 HIV SCREENING 1999 DTAP/TDAP/TD VACCINES (1 - Tdap) 2003 HEPATITIS B VACCINE (1 of 3 - 19+ 3-dose series) 2003 HPV VACCINE (1 - 3-dose SCDM series) 2011 DEPRESSION SCREENING 10/27/2024 COVID-19 VACCINE (1 - 2023-2 5 season) 2025 INFLUENZA VACCINE (#1) 2025 ZOSTER VACCINE (1 [...] Management General On track( 020 1:15 PM DENTAL ASSISTANT INSTRUCTOR) Mary Dominguez, RN Note: Expected end date: ongoing Interventions: Take all medications as prescribed Insurance MEDICAID - [place] [address] ANTHEM
--- NOTE | 2025-07-22 00:50 | ECG_ITS ---
Test Date: 2025-07-22 01:09:46 Measurements Intervals [place] Rate: 75 P: 24 CT: 142 QRS: 6 QRSD: 90 T: 35 QT: 409 QTc: 458 Interpretive Statements SINUS RHYTHM NORMAL ELECTROCARDIOGRAM Compared to ECG 12/30/2024 23:49:08 No significant changes Electronically Signed On 07-22-2025 07:46:12 CDT by Biju Weathers M.D.
--- NOTE | 2025-07-22 00:51 | ED.ABDPAIN ---
HPI - Abdominal Pain General Chief Complaint: Abdominal Pain Stated Complaint: adb pain Time Seen by Provider: 07/22/25 00:46 Source: patient Mode of arrival: ambulatory Limitations: no limitations History of Present Illness HPI narrative: this is a 40-year-old female with a history of anxiety depression and history of pancreatitis last drink approximately 2 weeks ago developed abdominal pain epigastric and left upper quadrant approximately 2 days ago and has progressively gotten worse over the last couple of days with nausea rates her pain at 10 with no flank pain no dysuria no hematuria no suprapubic tenderness or chest pain or shortness of breath. MD elicited complaint: abdominal pain Onset (ago): day(s) Pain Consistency: constant Location: epigastric and LUQ Severity: severe Pain scale (0-10): 8 Quality: aching Radiation: LUQ Exacerbating factors: eating Relieving factors: nothing Associated symptoms: nausea Treatments prior to arrival: NSAIDs Related Data Patient : No Home Medications ?Medication ?Instructions ?Recorded ?Confirmed ?Last Taken ?Type bupropion HCl 300 mg 24 hr tablet, 300 mg PO DAILY 07/18/20 07/22/25 07/21/25 History extended release clonazepam 0.5 mg tablet 0.5 mg PO QHS PRN Anxiety 12/04/21 07/22/25 07/21/25 History folic acid 1 mg tablet 1 mg PO DAILY 02/05/24 07/22/25 07/21/25 History fluoxetine 60 mg tablet 60 mg PO QPM 07/22/25 07/22/25 07/21/25 09:00 History 60 mg quetiapine 50 mg tablet 50 mg PO DAILY@1700 07/22/25 07/22/25 07/19/25 21:00 History 50 mg Allergies Allergy/AdvReac Type Severity Reaction Status Date / Time No Known Allergies Allergy Verified 07/22/25 00:52 Review of Systems Review of Systems: All systems reviewed & are unremarkable except as noted in HPI and below PMFSH Past Medical History Medical History (Updated 07/22/25 @ 10:52 by Jackie Guillen APRN) Tobacco abuse ETOH abuse Acute pancreatitis Depression Anxiety GERD (gastroesophageal reflux disease) Surgical History Surgical History History of tonsillectomy Family History Family History Other Unknown family medical history Social History Social History Smoking packs per day: 0.5 Smoking cigarettes per day: 10.0 Years smoked: 23 Smoking pack-years: 11.50 Smoking status: Current every day smoker Tobacco type: cigarettes Second hand tobacco smoke exposure: Yes Alcohol intake: current Drinks per week: 1 Substance use: current Substance use type: marijuana Lack of Transportation: No Lack of Food: Never True Current Housing: I Have Housing Concerned About Future Housing: No Difficulty Paying Gas/Electric Bills: No Difficulty Paying for Meds: No Currently Unemployed: No Education: High School Diploma/GED Difficulty w/ Childcare or Family Care: No Spiritual care concerns: No Exam Const: General: healthy appearing and no acute distress Nutritional Appearance: well nourished Orientation/consciousness: patient oriented x3 Limitations: no limitations Neck: Neck: normal visual inspection, no lymphadenopathy and no meningeal signs Chest: Chest palpation & inspection: normal inspection of the chest Resp: Effort & Inspection: normal respiratory effort Auscultation: clear to auscultation bilaterally Cardio: Rate: regular rate Rhythm: regular rhythm GI: GI Palp: Yes Soft to palpation and Yes Tenderness to palpation present (GI) ( Epigastric and left upper quadrant pain) : General: Yes bladder normal to palpation Back/Spine/Pelvis: Back: no CVA tenderness Skin: General skin exam: normal color Rashes: no rashes Neuro: General: patient oriented x3 and moves all extremities Extrem: General: normal to inspection and no clubbing, cyanosis or edema Psych: Affect: Anxious affect present Course Course Emergency Course: patient received IV fluids 4mg IV morphine and 4mg IV Zofran. CT scan shows acute pancreatitis with fatty liver disease patient received 4mg IV morphine with minimal pain control an additional 2mg of Dilaudid total of 4 acute pain control. Patient had a UA that showed 1+ and positive leukocytes consistent with UTI and started on ceftriaxone. White count 11.3. Lactic acid within normal range lipase of 1683. Will admit to hospitalist service. Vital Signs Vital signs: Vital Signs Temperature 36.4 C L 07/22/25 00:46 Pulse Rate 87 07/22/25 00:46 Respiratory Rate 20 07/22/25 00:46 Blood Pressure 148/93 H 07/22/25 00:46 Pulse Oximetry 98 07/22/25 00:46 Oxygen Delivery Room Air 07/22/25 00:46 Temperature 36.7 C 07/23/25 08:00 Pulse Rate 75 07/23/25 08:00 Respiratory Rate 18 07/23/25 08:00 Blood Pressure 115/65 07/23/25 08:00 Pulse Oximetry 96 07/23/25 08:00 Oxygen Delivery Room Air 07/23/25 08:00 MDM - Abdominal Pain Lab Data 07/23/25 06:22 07/23/25 06:23 Labs: Lab Results 07/22/25 07/22/25 Range/Units 01:03 01:19 WBC 11.3 H (4.8-10.8) K/mm3 RBC 3.62 L (4.20-5.40) M/mm3 Hgb 10.7 L (12.0-15.0) g/dL Hct 32.1 L (35.0-49.0) % MCV 88.7 (78.0-102.0) fL MCH 29.6 (27.0-31.0) pg MCHC 33.3 (32-36) g/dL RDW 13.2 (11.6-14.4) % Plt Count 197 (150-420) K/mm3 MPV 8.2 L (9.2-11.8) fl Immature Gran % (Auto) 1.5 H (0.0-0.0) % Neut % (Auto) 73.7 H (50.0-70.0) % Lymph % (Auto) 15.3 L (18.0-42.0) % [place] % (Auto) 7.7 (2.0-11.0) % Eos % (Auto) 1.4 (1.0-6.0) % Baso % (Auto) 0.4 (0.0-1.0) % Lymph # (Auto) 1.72 (1.10-4.50) K/mm3 [place] # (Auto) 0.87 (0.10-0.90) K/mm3 Eos # (Auto) 0.16 (0.02-0.50) K/mm3 Baso # (Auto) 0.05 (0.00-0.10) K/mm3 Abs Immat Gran (auto) 0.17 H (0.00-0.00) K/mm3 Absolute Neuts (auto) 8.28 H (1.70-7.20) K/mm3 Absolute Nucleated RBC 0.00 (0.00-0.00) K/mm3 Nucleated RBC % 0.0 (0-0.0) % PT 11.2 (9.50-12.1) Seconds INR 1.0 APTT 26.8 (23.9-30.70) Sec Sodium 136 L (137-145) mmol/L Potassium 3.5 (3.4-5.0) mmol/L Chloride 104 (98-107) mmol/L Carbon Dioxide 18 L (22-30) mmol/L Anion Gap 14 H (4-12) mmol/L BUN 12 D (7-17) mg/dL Creatinine 0.55 L (0.7-1.0) mg/dL Estim Creat Clear Calc 116 ml/min Estimated GFR > 60 (59 - ) Glucose 136 H (65-110) mg/dL Calculated Osmolality 283 L (285-295) mOsm/kg Lactic Acid 1.2 (0.4-2.0) mmol/L Calcium 8.4 (8.4-10.2) mg/dL Total Bilirubin 0.7 (0.2-1.3) mg/dL AST 39 H (14-36) U/L ALT 36 H (6-35) U/L Alkaline Phosphatase 72 (38-126) U/L Troponin I < 0.012 (0.000-0.034) ng/mL Total Protein 6.9 (6.3-8.2) g/dL Albumin 3.8 (3.5-5.1) g/dL Lipase 1683 H (23-300) U/L Urine Color Light yellow (Yellow) Urine Appearance Clear (Clear) Urine pH 6.0 (5.0-8.0) Ur Specific [place] 1.020 (1.010-1.020) Urine Protein Negative (Negative) Urine Glucose (UA) Negative (Negative) Urine Ketones 2+ H (Negative) Ur Blood (Man) Trace-intact H (Negative) Urine Nitrate Negative (Negative) Urine Bilirubin Negative (Negative) Urine Urobilinogen 0.2 (0.2-1.0) mg/dL Leukocyte Esterase Rfl 1+ H (Negative) ABDULKADIR/UL Urine RBC 0-2 (0-2) /hpf Urine WBC 16-20 H (0-3) /hpf Ur Squamous Epith Cells Few (Few) /hpf Urine Bacteria 1+ H (None) /hpf Urine Test Negative Imaging Data Radiologist's impression: ITS Impressions Abdomen/Pelvis CT 07/22/25 08:49 IMPRESSION: 1. Again consistent with acute pancreatitis, without complicating features. Critical Care Time Critical Care Time Critical Care Time: No Discharge Plan Discharge Clinical Impression: Pancreatitis Qualifiers: Chronicity: acute Pancreatitis type: unspecified pancreatitis type Acute pancreatitis complication: unspecified Qualified Code(s): K85.90 - Acute pancreatitis without necrosis or infection, unspecified UTI (urinary tract infection) Qualifiers: Urinary tract infection type: site unspecified Hematuria presence: without hematuria Qualified Code(s): N39.0 - Urinary tract infection, site not specified Patient Disposition: [facility] Condition: Stable Time of Disposition: 03:03
--- OUTSIDE RECORDS SUMMARY | 2025-07-22 00:59 | XMS_ITS | Encounter Summary ---
Author Organization [facility] Address [address] [place] [address] Care Team Providers Care Slip Operator Name Role Phone Laurie Argueta MD Primary Care Provider [phone] Encounter Details Date Type Department Care Team (Late st Contact Info) Description 04/03/2019 Abstract SFL CONVERSION [address] [place] [address] , Generic Conversion, Social History Tobacco Use Types Packs/Day Years Used Date Smoking Tobacco: Never Assessed Comments Unknown Sex and Gender Information Value Date Recorded Sex Assigned at Not on file Legal Sex Female 5:54 PM LOG ROLLER Gender Identity Not on file Sexual Orientation Not on file documented as of this encounter Plan of Treatment Not on file documented as of this encounter Visit Diagnoses Not on filedocumented in this encounter Care Teams Slip Operator Relationship Specialty Start Date End Date Laurie Argueta MD [address] [place] [phone] PCP - General FAMILY PRACTICE 06/14/19 documented as of this encounter
[2025-07-22] MEDS: MORPHINE SULFATE (*CRX) 4 MG/ML INJ IV PUSH (01:00)
[2025-07-22] MEDS: SODIUM CHLORIDE 0.9% IV 1,000 ML 999 ML IV CONT (01:01)
[2025-07-22] MEDS: PANTOPRAZOLE SODIUM IV 40 MG VIAL IV PUSH (01:02)
[2025-07-22] MEDS: ONDANSETRON INJ 4 MG/2 ML VIAL IV PUSH ×3 (01:02→20:09)
[2025-07-22 01:26] LABS: Add Urine Microscopic? YES; Appearance Urine Clear (Clear); Glucose Urine UA Negative (Negative); Leukocyte Esterase Ur 1+ LEU/UL (Negative); Nitrate Urine Negative (Negative); Specific Grav Ur 1.020 (1.010-1.020)
[2025-07-22 01:28] LABS: Hematocrit 32.1 % (35.0-49.0); Hemoglobin 10.7 g/dL (12.0-15.0); Immature Granulocyte Percent A 1.5 % (0.0-0.0); Lymphocytes Absolute Auto 1.72 K/mm3 (1.10-4.50); Mean Corpuscular HGB Conc 33.3 g/dL (32-36); Mean Corpuscular Hemoglobin 29.6 pg (27.0-31.0); Mean Corpuscular Volume 88.7 fL (78.0-102.0); Nucleated Red Blood Cells Absolute Auto 0.00 K/mm3 (0.00-0.00); Nucleated Red Blood Cells Perc 0.0 % (0-0.0); Platelet Count Result 197 K/mm3 (150-420); Red Blood Count 3.62 M/mm3 (4.20-5.40); White Blood Count 11.3 K/mm3 (4.8-10.8)
[2025-07-22] MEDS: HYDROmorphone HCL INJ (*CRX) 2 MG/ML VIAL 1 MG IV PUSH ×5 (01:32→17:39)
[2025-07-22 01:34] LABS: Pregnancy On Board Control Positive
[2025-07-22 01:36] LABS: Alanine Aminotransferase 36 U/L (6-35); Albumin Level 3.8 g/dL (3.5-5.1); Alkaline Phosphatase 72 U/L (38-126); Anion Gap 14 mmol/L (4-12); Aspartate Amino Transferase 39 U/L (14-36); Bilirubin,Total 0.7 mg/dL (0.2-1.3); Blood Urea Nitrogen 12 mg/dL (7-17); Calcium 8.4 mg/dL (8.4-10.2); Carbon Dioxide 18 mmol/L (22-30); Chloride 104 mmol/L (98-107); Estimated CRCL calculation 116 ml/min; Estimated Glomerular Filt Rate > 60; Glucose 136 mg/dL (65-110); Lipase 1683 U/L (23-300); Osmolality Calculated 283 mOsm/kg (285-295); Potassium 3.5 mmol/L (3.4-5.0); Sodium 136 mmol/L (137-145); Total Protein 6.9 g/dL (6.3-8.2)
[2025-07-22 01:38] LABS: INR 1.0; Partial Thromboplastin Time 26.8 Sec (23.9-30.70); Prothrombin Time 11.2 Seconds (9.50-12.1)
--- NOTE | 2025-07-22 01:42 | PC.NURSE ---
Pt resting and states pain meds starting to work, pt more relaxed, pt taken via w/c to CT.
[2025-07-22 01:47] LABS: Troponin I < 0.012 ng/mL (0.000-0.034)
--- NOTE | 2025-07-22 03:05 | PC.NURSE ---
ERP Dr Bautista in to speak w/ pt about need for admit. Pt agreeable to admission.
[2025-07-22] MEDS: cefTRIAXone 1 GM in SODIUM CHLORIDE 0.9% IV 50 ML 100 ML IVPB (03:06)
--- NOTE | 2025-07-22 03:17 | PC.NURSE ---
Pt to be admitted to 208 for 23 hr obs. Report given to DEJAH Villagran
[2025-07-22] MEDS: SODIUM CHLORIDE 0.9% IV 1,000 ML 100 ML IV CONT ×2 (03:23→09:48)
[2025-07-22] MEDS: NICOTINE (*PBKC) 21 MG PATCH 1 PATCH TRANSDERM ×2 (03:34→09:48)
[2025-07-22] MEDS: diazePAM INJ (*CRX) 10 MG/2 ML SYRINGE IV PUSH (04:01)
--- NOTE | 2025-07-22 04:11 | ADMGEN ---
This patient, Amara Chery, was admitted to 2nd Floor Room 208-2. Patient/family oriented to hospital policies and general routines including ID bracelet, bed and alarms, visiting hours, pain management, procedures, bathroom and other care routines, personal items, smoking policy, room service/diet, and visiting hours. Information on how to activate the Rapid Response Team has been discussed. Patient/Family are encouraged to report perceived risks to care and to ask questions if they do not understand what they are told or what they should do.
[2025-07-22 05:36] LABS: Hematocrit 33.9 % (35.0-49.0); Hemoglobin 11.1 g/dL (12.0-15.0); Immature Granulocyte Percent A 1.1 % (0.0-0.0); Lymphocytes Absolute Auto 1.59 K/mm3 (1.10-4.50); Mean Corpuscular HGB Conc 32.7 g/dL (32-36); Mean Corpuscular Hemoglobin 29.7 pg (27.0-31.0); Mean Corpuscular Volume 90.6 fL (78.0-102.0); Nucleated Red Blood Cells Absolute Auto 0.00 K/mm3 (0.00-0.00); Nucleated Red Blood Cells Perc 0.0 % (0-0.0); Platelet Count Result 192 K/mm3 (150-420); Red Blood Count 3.74 M/mm3 (4.20-5.40); White Blood Count 11.5 K/mm3 (4.8-10.8)
[2025-07-22 05:48] LABS: Alanine Aminotransferase 38 U/L (6-35); Albumin Level 4.0 g/dL (3.5-5.1); Alkaline Phosphatase 72 U/L (38-126); Anion Gap 10 mmol/L (4-12); Aspartate Amino Transferase 42 U/L (14-36); Bilirubin,Total 0.6 mg/dL (0.2-1.3); Blood Urea Nitrogen 9 mg/dL (7-17); Calcium 8.4 mg/dL (8.4-10.2); Carbon Dioxide 25 mmol/L (22-30); Chloride 103 mmol/L (98-107); Estimated CRCL calculation 108 ml/min; Estimated Glomerular Filt Rate > 60; Glucose 137 mg/dL (65-110); Lipase 1127 U/L (23-300); Osmolality Calculated 286 mOsm/kg (285-295); Potassium 3.7 mmol/L (3.4-5.0); Sodium 138 mmol/L (137-145); Total Protein 7.6 g/dL (6.3-8.2)
--- OUTSIDE RECORDS SUMMARY | 2025-07-22 07:13 | XMS_ITS | Clinical Summary ---
Author Organization [facility] Address [address] [place] [address] Care Team Providers Care House Wirer Name Role Phone Unavailable Primary Care Provider Unavailabl e Source Comments [facility],non-owned Affiliates and Associated Physician Practices is amultiple site organization consisting of ambulatory clinics and hospital sitesin [place], [place], [place] and [place]. This disclosure is being madepursuant to the Care Everywhere program and may not contain all information available regarding this patient. Last updated 18.[facility] Allergies No known active allergies Medications * [...] Comments Blood Pressure 116/82 12/14/2019 1:04 PM PROCED TECH Pulse 99 12/14/2019 1:04 PM PROCED TECH Temperature 36.7 C (98.1 F) 12/14/2019 1:04 PM PROCED TECH Respiratory Rate 18 12/14/2019 1:04 PM PROCED TECH Oxygen Saturation 99% 12/14/2019 1:04 PM PROCED TECH Inhaled Oxygen Concentration - - Weight 73.2 kg (161 lb 6.4 oz) 12/14/2019 1:04 P M PROCED TECH Height 165.1 cm (5' 5) 12/14/2019 1:04 PM PROCED TECH Body Mass Index 26.86 12/14/2019 1:04 PM PROCED TECH Plan of Treatment Health Maintenance Due Date [...] Management General On track( 020 1:15 PM PROCED TECH) Mary Dominguez, RN Note: Expected end date: ongoing Interventions: Take all medications as prescribed Insurance MEDICAID - OUT OF STATE [place]
--- OUTSIDE RECORDS SUMMARY | 2025-07-22 07:13 | XMS_ITS | Clinical Summary ---
Author Organization [facility] Address [address] [place] [address] Care Team Providers Care Senior Javascript Developer Name Role Phone Laurie Argueta MD Primary Care Provider [phone] Allergies No known active allergies Medications buPROPion XL 300 MG 24 hr tablet Take 1 tablet (300 mg total) by mouth daily. Active vitamin D2, ergocalciferol, 86761 UNITS capsule Take 1 capsule (50,000 Units [...] she has not drank in a week [facility] Answer Date Recorded In the past 12 months has [employer], gas, oil, or water [employer] threatened to shut off services in your [...] place to sleep or slept in a long-term (including now)? No 09/06/2023 Housing Stability Vital Sign Answer Thomas e Recorded In the last 12 months, was t here a time when you were not able to pay the mortgage or rent on time? No 08/13/2024 In the past 12 months, how m any times have you moved where you were living? 0 08/13/2024 At any time in the past 12 m [facility], were you homeless or living in a long-term (including now)? No 08/13/2024 Comments No Sex and Gender Information Value Date Recorded Sex Assigned at Not on file Legal Sex Female 5:54 PM INFECTION PREVENTION PRACTITIONER Gender Identity Not on file Sexual Orientation [...] patient's age to complete this topic Insurance [employer] Advance Directives * Full Code (Latest Code Status on File) Date Activated Date Inactivated Comments 08/13/2024 8:06 AM 08/15/2024 1:59 PM * Full Code Date Activated Date Inactivated Comments 08/13/2024 6:30 AM 08/13/2024 8:06 AM * Full Code Date Activated Date Inactivated Comments 09/05/2023 5:13 PM 09/08/2023 3:16 PM Care Teams Senior Javascript Developer Relationship Specialty Start Date End Date Laurie Argueta MD [address] [place] [address] PCP - General FAMILY PRACTICE 06/14/19
[2025-07-22 09:27] LABS: Cholesterol 162 mg/dL (0-200); HDL Direct 34 mg/dL; Magnesium 1.5 mg/dL (1.6-2.3); Triglycerides 153 mg/dL (<150)
[2025-07-22] MEDS: KETOROLAC 30 MG/ML VIAL (*BKC) IV PUSH (09:46)
[2025-07-22] MEDS: buPROPion HCL XL (24 HR) 150 MG TABCR 300 MG PO (09:48)
[2025-07-22] MEDS: MULTIVITAMINS THERAPEUTIC TAB (*BKC) 1 TABLET PO (09:48)
[2025-07-22] MEDS: PANTOPRAZOLE 40 MG TABLET PO (09:48)
[2025-07-22] MEDS: FOLIC ACID 1 MG TABLET PO (09:48)
--- NOTE | 2025-07-22 10:39 | P.HP_ITS ---
H&P: HPI History of Present Illness Date/Time: 07/22/25 10:39 Chief Complaint: ABD pain Narrative: Patient is a 40-year-old female who presented to the emergency department with complaints of severe abdominal pain which has worsened over the last 7-10 days. patient reports past medical history anxiety, depression, GERD, previous pancreatitis and ETOH abuse. Patient states that she had had her last alc oholic drink 2 weeks prior and pain came on about 2-3 days ago. patient states she has has not been able to tolerate oral intake with some nausea and vomiting. Denied any chest pain, shortness a breath, CVA pain, dysuria, fever, or chills. patient states she did take NSAIDs which have not helped. In the ED: in the emergency department patient was found to have acute pancreatitis evidenced CT abdomen and lipase greater than 1600 with mild leukocytosis at 11.3. patient with mild elevated liver enzymes. UA was also suspicious for urinary tract infection. patient was started on IV fluids and IVP pain management as well as antiemetics placed NPO and admitted to the medical unit for further evaluation and treatment of acute pancreatitis. patient is seen following day tearful during assessment reports pain is still moderate to severe denied any fever chills reports she has a history and has had acute pancreatitis before in the past patient educated on the need of immediate ETOH cessation no evidence of alcohol withdrawal at this time. Patient denied any chest pain, shortness a breath, nausea or vomiting so I did place patient on a full liquid diet and will increase as tolerated Review of Systems Review of Systems: All systems reviewed & are unremarkable except as noted in HPI and below PMFSH Past Medical History Medical History (Updated 07/22/25 @ 10:52 by Jackie Guillen APRN) Tobacco abuse ETOH abuse Acute pancreatitis Depression Anxiety GERD (gastroesophageal reflux disease) Surgical History Surgical History History of tonsillectomy Family History Family History Other Unknown family medical history Social History Social History Smoking packs per day: 0.5 Smoking cigarettes per day: 10.0 Years smoked: 23 Smoking pack-years: 11.50 Smoking status: Current every day smoker Tobacco type: cigarettes Second hand tobacco smoke exposure: Yes Alcohol intake: current Drinks per week: 1 Substance use: current Substance use type: marijuana Lack of Transportation: No Lack of Food: Never True Current Housing: I Have Housing Concerned About Future Housing: No Difficulty Paying Gas/Electric Bills: No Difficulty Paying for Meds: No Currently Unemployed: No Education: High School Diploma/GED Difficulty w/ Childcare or Family Care: No Spiritual care concerns: No Meds Home Medications and Allergies Home Medications ?Medication ?Instructions ?Recorded ?Confirmed ?Type bupropion HCl 300 mg 24 hr tablet, 300 mg PO DAILY 07/22/25 History extended release clonazepam 0.5 mg tablet 0.5 mg PO QHS PRN Anxiety 07/22/25 History folic acid 1 mg tablet 1 mg PO DAILY 02/05/2407/22 History ibuprofen 600 mg tablet 600 mg PO Q6H PRN pain #20 t abs 04/18/24 07/22/25 Rx fluoxetine 60 mg tablet 60 mg PO QPM 07/22/25 History quetiapine 50 mg tablet 50 mg PO DAILY@1700 07/22/25 07/22/25 History Allergies Allergy/AdvReac Type Severity Reaction Status Date / Time No Known Allergies Allergy Verified 07/22/25 00:52 Vital Signs Vital Signs - 24 hr 07/22/25 00:46 07/22/25 02:20 07/22/25 03:29 Temperature 97.5 F L 97.9 F Pulse Rate 87 87 75 Respiratory Rate 20 18 18 Blood Pressure 148/93 H 130/84 136/79 Pulse Oximetry 98 99 99 Oxygen Delivery Room Air Room Air Room Air 07/22/25 06:00 07/22/25 08:00 Temperature 98.0 F 97.4 F L Pulse Rate 96 71 Respiratory Rate 16 18 Blood Pressure 122/77 128/77 Pulse Oximetry 96 97 Oxygen Delivery Room Air Room Air Exam Const: General: no acute distress and uncomfortable HENMT: Mouth: Yes moist mucous membranes Eyes: General: appearance normal, both eyes and all related structures Neck: Neck: supple Resp: Effort & Inspection: normal respiratory effort Auscultation: clear to auscultation bilaterally Cardio: Rate: regular rate Rhythm: regular rhythm GI: GI Palp: Yes Soft to palpation Auscultation: normal bowel sounds Skin: General skin exam: normal color Wounds: no wounds Neuro: General: gait normal Speech: normal speech Motor exam (neuro): 5/5 motor strength present throughout Sensory Exam: normal sensation Psych: Affect: Sad affect present and Anxious affect present Thought content: Yes Depressive thoughts present H&P: Results Labs Labs: Short CBC 07/22/25 07/22/25 Range/Units 01:19 05:27 WBC 11.3 H 11.5 H (4.8-10.8) K/mm3 Hgb 10.7 L 11.1 L (12.0-15.0) g/dL Hct 32.1 L 33.9 L (35.0-49.0) % Plt Count 197 192 (150-420) K/mm3 BMP 07/22/25 07/22/25 01:19 05:27 Sodium 136 L 138 Potassium 3.5 3.7 Chloride 104 103 Carbon Dioxide 18 L 25 BUN 12 D 9 Creatinine 0.55 L 0.60 L Glucose 136 H 137 H Calcium 8.4 8.4 Cardiac Enzymes 07/22/25 Range/Units 01:19 Troponin I < 0.012 (0.000-0.034) ng/mL Liver Function 07/22/25 07/22/25 Range/Units 01:19 05:27 Total Bilirubin 0.7 0.6 (0.2-1.3) mg/dL AST 39 H 42 H (14-36) U/L ALT 36 H 38 H (6-35) U/L Alkaline Phosphatase 72 72 (38-126) U/L Albumin 3.8 4.0 (3.5-5.1) g/dL Urine 07/22/25 Range/Units 01:03 Urine Color Light yellow (Yellow) Urine Appearance Clear (Clear) Urine pH 6.0 (5.0-8.0) Ur Specific [place] 1.020 (1.010-1.020) Urine Protein Negative (Negative) Urine Glucose (UA) Negative (Negative) Assessment and Plan Assessment and plan (1) Acute pancreatitis: Qualifiers: Acute pancreatitis complication: unspecified Pancreatitis type: unspecified pancreatitis type Qualified Code(s): K85.90 - Acute pancreatitis without necrosis or infection, unspecified Code(s): K85.90 - Acute pancreatitis without necrosis or infection, unspecified Status: Acute Assessment and Plan: CT abdomen showing acute pancreatitis with elevated lipase and history of alcohol abuse * trend lipase * IV fluids 250ML/HR * Toradol q.6 30 mg IV push * Dilaudid IV push for pain management * increase diet to full liquid will advance as tolerated * encouraged immediate alcohol cessation (2) Anxiety: Code(s): F41.9 - Anxiety disorder, unspecified Status: Acute Assessment and Plan: * continued patient's, bupropion, fluoxetine, Seroquel, and p.r.n. clonazepam (3) UTI (urinary tract infection): Qualifiers: Hematuria presence: without hematuria Urinary tract infection type: site unspecified Qualified Code(s): N39.0 - Urinary tract infection, site not specified Code(s): N39.0 - Urinary tract infection, site not specified Status: Acute Assessment and Plan: UA was suspicious for urinary tract infection * IV Rocephin pending culture (4) GERD (gastroesophageal reflux disease): Code(s): K21.9 - Gastro-esophageal reflux disease without esophagitis Status: Acute Assessment and Plan: * pantoprazole 40 mg daily (5) ETOH abuse: Code(s): F10.10 - Alcohol abuse, uncomplicated Status: Acute Assessment and Plan: patient reports history of alcohol abuse and previous acute pancreatitis * encouraged immediate ETOH cessation * continue patient's folic acid and added a multivitamin (6) Tobacco abuse: Code(s): Z72.0 - Tobacco use Status: Acute Assessment and Plan: * nicotine patch * remove at night * educated on smoking cessation Plan Code status: Full code per patient DVT prophylaxis: Lovenox Stress ulcer prophylaxis: Protonix 40 daily PT/OT notes: ambulatory Disposition: patient will continue admission to the medical unit for IV fluids and IV pain management will advance diet as tolerated trend labs patient is ambulatory on own and plan will be to return home at discharge rehab resources have been provided. Quality VTE Prophylaxis VTE prophylaxis: pharmacologic ordered -Patient's previous records reviewed on admission -ER notes reviewed in detail on admission -discussed all findings and current treatment plan with patient/Family/POA -Consultations reviewed for recommendations -Patient's disposition for safe discharge discussed with binder caser -radiology imaging, EKG and test results personally reviewed and interpreted unless otherwise specified Dictation performed by [employer] direct speech recognition software, therefore drier feeder variants and typographical errors may occur. Hospitalist THEO Advance Care Plan I have confirmed that the patient's Advanced Care Plan is present, code status is documented, or surrogate decision maker is listed in patient medical record.: Yes Medication Reconciliation I have utilized all available resources to obtain, update and review the patients current medications (includes all prescriptions, OTC, herbals, cannabis, and nutritional supplements).: Yes The patient is not eligible for med reconciliation; the patient is in a emergent medical situation where delaying treatment would jeopardize the patients health.: No
[2025-07-22] MEDS: KETOROLAC 15 MG/ML VIAL (*BKC) IV PUSH ×2 (13:29→20:05)
[2025-07-22] MEDS: SODIUM CHLORIDE 0.9% IV 1,000 ML 250 ML IV CONT ×2 (15:57→20:44)
[2025-07-22] MEDS: CALCIUM CARBONATE (TUMS) 500 MG (200 MG ELEMENTAL) PO (18:58)
[2025-07-22] MEDS: clonazePAM (*CRX) 0.5 MG TABLET PO (20:07)
[2025-07-23] VITALS: BP 130/77; PULSE 78; RESP 17; TEMP 36.7; O2SAT 97
[2025-07-23] MEDS: HYDROmorphone HCL INJ (*CRX) 2 MG/ML VIAL 1 MG IV PUSH ×2 (00:19→06:27)
[2025-07-23] MEDS: SODIUM CHLORIDE 0.9% IV 1,000 ML 250 ML IV CONT ×2 (00:51→04:52)
[2025-07-23] MEDS: cefTRIAXone 1 GM in SODIUM CHLORIDE 0.9% IV 50 ML 100 ML IVPB (05:04)
[2025-07-23 06:27] LABS: Hematocrit 31.5 % (35.0-49.0); Hemoglobin 10.2 g/dL (12.0-15.0); Mean Corpuscular HGB Conc 32.4 g/dL (32-36); Mean Corpuscular Hemoglobin 29.8 pg (27.0-31.0); Mean Corpuscular Volume 92.1 fL (78.0-102.0); Platelet Count Result 159 K/mm3 (150-420); Red Blood Count 3.42 M/mm3 (4.20-5.40); White Blood Count 7.4 K/mm3 (4.8-10.8)
[2025-07-23 06:39] LABS: Alanine Aminotransferase 39 U/L (6-35); Albumin Level 3.4 g/dL (3.5-5.1); Alkaline Phosphatase 66 U/L (38-126); Anion Gap 9 mmol/L (4-12); Aspartate Amino Transferase 55 U/L (14-36); Bilirubin,Total 0.5 mg/dL (0.2-1.3); Blood Urea Nitrogen 3 mg/dL (7-17); Calcium 7.9 mg/dL (8.4-10.2); Carbon Dioxide 22 mmol/L (22-30); Chloride 107 mmol/L (98-107); Estimated CRCL calculation 115 ml/min; Estimated Glomerular Filt Rate > 60; Glucose 108 mg/dL (65-110); Lipase 153 U/L (23-300); Magnesium 1.8 mg/dL (1.6-2.3); Osmolality Calculated 283 mOsm/kg (285-295); Potassium 3.5 mmol/L (3.4-5.0); Sodium 138 mmol/L (137-145); Total Protein 6.3 g/dL (6.3-8.2)
[2025-07-23 08:00] VITALS: BP 115/65; PULSE 75; RESP 18; TEMP 36.7; O2SAT 96
[2025-07-23] MEDS: FOLIC ACID 1 MG TABLET PO (09:46)
[2025-07-23] MEDS: MULTIVITAMINS THERAPEUTIC TAB (*BKC) 1 TABLET PO (09:46)
[2025-07-23] MEDS: buPROPion HCL XL (24 HR) 150 MG TABCR 300 MG PO (09:46)
[2025-07-23] MEDS: PANTOPRAZOLE 40 MG TABLET PO (09:46)
--- NOTE | 2025-07-23 10:03 | P.DS_ITS ---
DS: Admitting Diagnosis Discharge Date Admitting Diagnosis acute pancreatitis DS: Discharge Diagnosis Discharge Diagnosis (1) Acute pancreatitis: Qualifiers: Acute pancreatitis complication: unspecified Pancreatitis type: unspecified pancreatitis type Qualified Code(s): K85.90 - Acute pancreatitis without necrosis or infection, unspecified Code(s): K85.90 - Acute pancreatitis without necrosis or infection, unspecified Status: Acute (2) Anxiety: Code(s): F41.9 - Anxiety disorder, unspecified Status: Acute (3) UTI (urinary tract infection): Qualifiers: Hematuria presence: without hematuria Urinary tract infection type: site unspecified Qualified Code(s): N39.0 - Urinary tract infection, site not specified Code(s): N39.0 - Urinary tract infection, site not specified Status: Acute (4) GERD (gastroesophageal reflux disease): Code(s): K21.9 - Gastro-esophageal reflux disease without esophagitis Status: Acute (5) ETOH abuse: Code(s): F10.10 - Alcohol abuse, uncomplicated Status: Acute (6) Tobacco abuse: Code(s): Z72.0 - Tobacco use Status: Acute DS: Summary Hospital Course Reason for hospitalization: acute pancreatitis Hospital Course: Admission: Patient was a 40-year-old female who presented to the emergency department with complaints of severe abdominal pain which has worsened over the last 7-10 days. patient reports past medical history anxiety, depression, GERD, previous pancreatitis and ETOH abuse. Patient states that she had had her last alcoholic drink 2 weeks prior and pain came on about 2-3 days ago. patient states she has has not been able to tolerate oral intake with some nausea and vomiting. Denied any chest pain, shortness a breath, CVA pain, dysuria, fever, or chills. patient states she did take NSAIDs which have not helped. In the ED: in the emergency department patient was found to have acute pancreatitis evidenced CT abdomen and lipase greater than 1600 with mild leukocytosis at 11.3. patient with mild elevated liver enzymes. UA was also suspicious for urinary tract infection. patient was started on IV fluids and IVP pain management as well as antiemetics placed NPO and admitted to the medical unit for further evaluation and treatment of acute pancreatitis. Hospital Course: patient was admitted to the medical unit and initiated on IV fluids, antiemetics and pain management for acute pancreatitis. Patient was seen following day tearful during assessment reports pain is still moderate to severe denied any fever chills reports she has a history and has had acute pancreatitis before in the past patient educated on the need of immediate ETOH cessation no evidence of alcohol withdrawal at this time. after evaluation I increase patient's fluids to 250 mL/hour as well as added Toradol q.6 for pain management I did advance patient to a full liquid diet and advised she could advance to a regular diet if able to tolerate full liquid. patient with overall improvement to symptoms assessed day of discharge with no acute distress reported abdominal pain had improved she had no further nausea or vomiting and was tolerating all oral intake with lipase back within normal limits. patient was discharged home I did advise the need for immediate ETOH cessation to reduce chances of further episodes of acute pancreatitis. Status at Discharge Functional status at discharge: independent ambulation Overall status at discharge: patient is back to baseline Time Spent with Patient Time attestation: Total time spent providing and/or coordinating discharge services: Time spent: Greater than 30 minutes Exam Const: General: no acute distress and uncomfortable HENMT: Mouth: Yes moist mucous membranes Eyes: General: appearance normal, both eyes and all related structures Neck: Neck: supple Resp: Effort & Inspection: normal respiratory effort Auscultation: clear to auscultation bilaterally Cardio: Rate: regular rate Rhythm: regular rhythm GI: Auscultation: normal bowel sounds Skin: General skin exam: normal color Wounds: no wounds Neuro: General: gait normal Speech: normal speech Motor exam (neuro): 5/5 motor strength present throughout Sensory Exam: normal sensation Psych: Affect: Sad affect present and Anxious affect present DS: Data Data Completed and Pending Labs on day of discharge: Labs from last 24 hours 07/23/25 07/23/25 06:23 06:22 WBC 7.4 RBC 3.42 L Hgb 10.2 L Hct 31.5 L MCV 92.1 MCH 29.8 MCHC 32.4 RDW 13.6 Plt Count 159 MPV 7.9 L Sodium 138 Potassium 3.5 Chloride 107 Carbon Dioxide 22 Anion Gap 9 BUN 3 L D Creatinine 0.56 L Estim Creat Clear Calc 115 Estimated GFR > 60 Glucose 108 Calculated Osmolality 283 L Calcium 7.9 L Magnesium 1.8 Total Bilirubin 0.5 AST 55 H ALT 39 H Alkaline Phosphatase 66 Total Protein 6.3 Albumin 3.4 L Lipase 153 Imaging Radiologist's impression: CT abdomen pelvis w con Clinical History: ALL OVER ABDOMEN PAIN/HX OF PANCREATITIS AND KIDNEY STONES . Comparison: CT abdomen and pelvis 06/04/2025 Technique: Axial images lung bases to symphysis pubis 100 mL Omnipaque 350 Coronal, sagittal reformats CT images acquired with automatic exposure control for dose reduction DLP: 488 mGy-cm Findings: Lung bases: Clear. Visualized heart and pericardium: Unremarkable. Liver: Enlarged. Steatosis. Gallbladder: Unremarkable. Spleen: Unremarkable. Pancreas: Surrounding stranding and fluid. Mild ductal dilatation. Small probable side branch IPMT anterior body unchanged. Mildly heterogeneous enhancement. Regional vessels patent. Adrenal glands: Unremarkable. Kidneys: Right kidney- No hydronephrosis. No renal stones. Left kidney- No hydronephrosis. No renal stones. Distal esophagus/stomach: Unremarkable. Small bowel loops: Normal caliber and wall thickness. Colon: Normal caliber and wall thickness. Normal RLQ appendix. Nodes: No enlarged nodes. Peritoneum: No ascites. No free air. Urinary bladder: Unremarkable. Uterus: Unremarkable. Adnexa: No masses. Bones: No acute bony abnormality. Soft tissues: Unremarkable. Aorta: No aneurysm or dissection. IVC: Unremarkable. Main portal vein/SMV/splenic vein: Patent. IMPRESSION: 1. Again consistent with acute pancreatitis, without complicating features. Discharge Plan Discharge Attending physician on discharge: Juan Elliott Consulting providers: Jackie Guillen Discharging Clinician: Jackie Guillen Anticipated Discharge Date/Time: 07/23/25 09:58 Patient Disposition: Home Activity: as tolerated Diet: as tolerated and regular Discharge Instructions: 1). acute pancreatitis * recommend immediate ETOH cessation * encouraged oral hydration * advance diet as tolerated recommend bland non spicy foods 2). UTI * your urine sample showed some suspicion for urinary tract infection I prescribed oral antibiotic therapy will need 3 more days worth to complete How can you care for yourself at home? ? Keep track of any new symptoms or changes in your symptoms. ? Rest until you feel better. ? Be safe with medicines. Take your medicines exactly as prescribed. Call your doctor if you think you are having a problem with your medicine. ? Do not drive after taking a prescription pain medicine. ? Ensure to follow-up with primary care physician as indicated and provide updated medication list provided to you at discharge. When should you call for help? Call 911 anytime you think you may need emergency care. For example, call if: ? You passed out (lost consciousness). Call your doctor now or seek immediate medical care if: ? You have new symptoms like fever, difficulty breathing, Chest pain, vomiting, or rash. ? You have new or different pain. ? You are confused and are having trouble thinking clearly. ? Your symptoms are getting worse. Watch closely for changes in your health, and be sure to contact your doctor if: ? You do not get better as expected. Patient Instructions: Antibiotic Form, Pancreatitis (DC), Urinary Tract Infection in Women (DC) Patient Language: Moroccan Stand Alone Forms: General Discharge Information Follow-up/Referrals: KendallLaurie [Other] - 2 weeks Discharge Medications: New multivitamin with folic acid [Thera] 400 mcg Tablet 1 tablet PO QAM Qty: 30 0RF amoxicillin-pot clavulanate 875-125 mg tablet 1 tablet PO Q12H Qty: 6 0RF Continued folic acid 1 mg tablet 1 mg PO DAILY ibuprofen 600 mg tablet 600 mg PO Q6H PRN (Reason: pain) Qty: 20 0RF quetiapine 50 mg tablet 50 mg PO DAILY@1700 fluoxetine 60 mg tablet 60 mg PO QPM clonazepam 0.5 mg tablet 0.5 mg PO QHS PRN (Reason: Anxiety) bupropion HCl 300 mg tablet extended release 24 hr 300 mg PO DAILY Date of admission: 07/22/25 03:03 Primary Care Provider: BrayanLaurie Admitting Provider: Juan Elliott Attending physician on admission: Juan Elliott Condition: Stable Quality VTE Prophylaxis VTE prophylaxis: pharmacologic ordered -Patient's previous records reviewed on admission -ER notes reviewed in detail on admission -discussed all findings and current treatment plan with patient/Family/POA -Consultations reviewed for recommendations -Patient's disposition for safe discharge discussed with case liner -radiology imaging, EKG and test results I personally reviewed and interpreted unless otherwise specified Dictation performed by [employer] direct speech recognition software, therefore energy efficient site manager variants and typographical errors may occur. Hospitalist MIPS Heart Failure (Exclusion) Patient has history of Heart Transplant or Left Ventricular Assistive Device?: No IF YES, STOP HERE Heart Failure (Qualifier) Patient has current or prior documentation of LVEF less than or equal to 40%, or mod/servere depressed LVSF?: No IF NO, STOP HERE
--- NOTE | 2025-07-23 11:56 | PC.NURSE ---
Discharge instructions reviewed with patient. Taken off floor per wheelchair
--- NOTE | 2025-07-25 08:41 | PC.NURSE ---
discharge call back completed, states no questions regarding dc instructions.
== END 2025-07-23 10:25 | disposition home or self-care (01) ==
LOC: CHSED 03:03 → CHS2ND 06:54
PROVIDERS: Nurse Practitioner Family; Admitting Provider Internal Medicine; Emergency Provider Emergency Medicine; Visit Provider Internal Medicine
DX: K85.90 Acute pancreatitis without necrosis or infection, unspecified (principal); N39.0 Urinary tract infection, site not specified; F10.10 Alcohol abuse, uncomplicated; F41.8 Other specified anxiety disorders; K21.9 Gastro-esophageal reflux disease without esophagitis; F17.210 Nicotine dependence, cigarettes, uncomplicated
CPT/HCPCS: 36415; 74177; 80053; 80061; 81001; 81025; 83605; 83690; 83735; 84484; 85025; 85027; 85610; 85730; 87086; 93005; 96361; 96365; 96375; 96376; 99285; A9270; G0378; J0696; J1171; J1885; J2270; J2405; J2470; J3360; J7030; Q9967